=== PATIENT | female | born 1945 | race Caucasian/White ===

== ENCOUNTER → 2016-12-04 | Outpatient (CLI) | payer OTHER ==
[~2016-12-04] MED LIST: ALPR-411 PO; CHOL2000 PO; CINNAMON PO; CRG40 PO; CTP/1 PO; CTP1 PO; EZET10TA41 PO; FISHOIL PO; FLAX SEED OIL PO; FLUO40CA8 PO; GLC/500 PO; IBUP-103 PO; KRIL1CAP24 PO; LEVO88TA3 PO; LEVOXYL PO; LISI20TA3 PO; MEDLIST; MULT-506 PO; NADO40TA PO; POTASSIUM PO; PRZCUNK; SUMA4KIT SQ; XANAX PO
[2016-12-04 13:42] LABS: ESTIMATED AVERAGE GLUCOSE 160 mg/dl; HA1C FLAG Normal (Normal)
== END | disposition home or self-care (01) ==
LOC: C.LABPVFM 10:44
PROVIDERS: ATTEND Family Medicine
DX: E11.9 Type 2 diabetes mellitus without complications (principal); E55.9 Vitamin D deficiency, unspecified

== ENCOUNTER → 2016-12-07 | Outpatient (CLI) | payer OTHER | END | disposition home or self-care (01) | LOC: C.LABPVFM 08:06 | PROVIDERS: ATTEND Family Medicine | DX: R39.9 Unspecified symptoms and signs involving the genitourinary system (principal) ==

== ENCOUNTER 2017-03-18 13:27 | Emergency (ER) | payer OTHER ==
[~2017-03-18] VITALS: Ht 167.6 cm; Wt 71.3 kg
[~2017-03-18 13:27] MED LIST changes: -ALPR-411 PO; -CHOL2000 PO; -CTP/1 PO; -FLUO40CA8 PO; -GLC/500 PO; -IBUP-103 PO; -KRIL1CAP24 PO; -LEVO88TA3 PO; -LISI20TA3 PO; -NADO40TA PO; -SUMA4KIT SQ
[2017-03-18 13:31] VITALS: TEMP 36.6; Ht 167.6 cm; Wt 71.3 kg
[2017-03-18] MEDS ORDERED: LISI20TA3 PO (13:53)
[2017-03-18] MEDS ORDERED: IBUP-103 PO (13:53)
[2017-03-18] MEDS ORDERED: SUMA4KIT SQ (13:53)
[2017-03-18] MEDS ORDERED: NADO40TA PO (13:53)
[2017-03-18] MEDS ORDERED: GLC/500 PO ×2 (13:53)
[2017-03-18] MEDS ORDERED: CTP/1 PO (13:53)
[2017-03-18] MEDS ORDERED: KRIL1CAP24 PO (13:53)
[2017-03-18] MEDS ORDERED: CHOL2000 PO (13:53)
[2017-03-18] MEDS ORDERED: LEVO88TA3 PO (13:53)
[2017-03-18] MEDS ORDERED: ALPR-411 PO (13:53)
[2017-03-18] MEDS ORDERED: FLUO40CA8 PO (13:53)
--- NOTE | 2017-03-18 13:58 | DIAGNOSTIC IMAGING REPORT ---
CHEST 2 VIEWS ROUTINE HISTORY: swallowed 2 plastic paper clips COMPARISON: None. FINDINGS: The lungs are clear. Cardiac silhouette is normal in size. No pleural effusions. No pneumothorax. IMPRESSION: No acute process. No radiopaque foreign bodies. Electronically signed by: Maxime Sahni M.D. 03/18/2017 1:57 PM Dictated Date/Time: 03/18/2017 1:55 PM
--- NOTE | 2017-03-18 14:41 | EMERGENCY ROOM VISIT NOTE ---
ED Visit Note First contact with patient: 13:34 Patient was seen by our PA/MINE PATROL. I was involved in the patient's care and did evaluate the patient myself. I was involved in the care throughout the ER stay. The patient swallowed 2 small plastic paper clips. Chest film is unremarkable. She is in no pain. These foreign body should pass spontaneously through the GI tract, she will watch her stool for the foreign bodies. If she has abdominal pain or vomiting, she will return for reassessment.
[2017-03-18 14:54] VITALS: BP 113/64; PULSE 56; O2SAT 98
--- NOTE | 2017-03-18 17:55 | EMERGENCY ROOM VISIT NOTE ---
History First contact with patient: 13:34 Chief Complaint: OTHER COMPLAINT Stated Complaint: SWALLOWED 2 PAPER CLIPS History of Present Illness The patient is a 72 year old white female who presents to the Emergency Room with complaints of swelling to plastic paperclips approximately an hour ago. She states she usually uses them to keep track of her pills throughout the day. She had them in her mouth while attempting to address her pill count. She forgot that they were paperclips and believed she had her pills in her mouth. She swallowed some 7-Up and accidentally swallowed both of the paper clips. They are approximately 1 cm x 2 cm brightly colored plastic. She denies any sore throat issues. No shortness of breath. No difficulty breathing. She has had no difficulty swallowing. She did drive herself throw up putting a spoon in her mouth. She was unable to vomit them out. She has no acute distress at this point. She denies any abdominal discomfort. Review of Systems REVIEW OF SYSTEM: HEENT: No dizziness, visual problems, hearing loss, or tinnitus. There is no difficulty swallowing and no oral lesions are present. LYMPH: No adenopathy. PULMONARY: No cough, shortness of breath, sputum production or hemoptysis. CARDIOVASCULAR: No chest pain, palpitations, shortness of breath or peripheral edema. GASTROINTESTINAL: No diarrhea, constipation, nausea, vomiting, or abdominal pain. GENITOURINARY: No dysuria, frequency, urgency or nocturia. NEUROLOGIC: No weakness, muscle tenderness, epilepsy or history of neurological problems. MUSCULOSKELETAL: No history of joint tenderness/swelling. Positive history of arthritis and arthralgias. SKIN: No rashes or lesions. PSYCHIATRIC: No history of depression or mental illness. ENDOCRINE: No history of thyroid disorders, or abnormal hair growth. Past Medical/Surgical History Significant for diabetes, hypertension, migraines, and urinary tract issues Previous surgeries: Significant for hysterectomy Family History Significant for heart disease, hypertension, cancer, and kidney stones. Father is . Social History Smoking Status: Never Smoker Alcohol Use: none Drug Use: none Marital Status: Housing Status: lives with family, lives with significant other Occupation Status: retired Current/Historical Medications Scheduled Cholecalciferol (Vitamin D3), 2,000 UNITS PO DAILY Clonidine Hcl (Catapres), 0.1 MG PO BID Fluoxetine (Prozac), 40 MG PO QAM Ibuprofen Tab (Advil), 200-600 MG PO Q4H Krill Oil (Krill Oil 500 mg), 500 MG PO DAILY Levothyroxine Sodium (Levothyroxine Sodium), 88 MCG PO QAM Lisinopril (Prinivil), 10 MG PO DAILY Metformin Hcl (Glucophage), 1,000 MG PO QAM Metformin Hcl (Glucophage), 500 MG PO QPM Nadolol (Corgard), 40 MG PO BID Scheduled PRN Alprazolam (Xanax), 1 MG PO BID PRN for Anxiety Sumatriptan Succinate (Imitrex Statdose Refill), 4 MG SQ UD PRN for Migraine Allergies Coded Allergies: No Known Allergies (Verified , 09/01/10) Physical Exam Vital Signs Date Time Temp Pulse Resp B/P Pulse Ox O2 Delivery O2 Flow Rate FiO2 03/18/17 14:54 56 18 113/64 98 03/18/17 13:31 36.6 63 18 109/62 98 Room Air Pain Rating (0-10): 0 Physical Exam Gen.: Well-developed, well-nourished, elderly white female, in no acute distress. Sitting on a bed. Alert and oriented. Skin:Warm and dry with good turgor. No rashes or lesions. No ecchymosis or erythema. The patient is not diaphoretic. No abrasions. HEENT: Normocephalic atraumatic. Eyes PERRLA, EOMI. No conjunctiva or scleral injection. Nares patent bilaterally without turbinate enlargement. No significant drainage. No epistaxis. Oropharynx without erythema or exudate. Uvula midline, oral mucosa moist. No lesions present. No foreign material is visible. Heart: Heart RRR. No MGR. Peripheral pulses are 2+. Lungs: Lungs are clear to auscultation. No crackles rhonchi or wheezing. Good air movement. The patient is able to take a deep breath. Abdomen: Abdomen was inspected, auscultated, and palpated. Bowel sounds present x 4. Soft, nontender to palpation. No hepato-splenomegaly. Musculoskeletal: Gross motor function of the upper and lower extremities is intact and unremarkable. Medical Decision & Procedures ER Provider Diagnostic Interpretation: Chest x-ray obtained today was read by radiology as negative for visible foreign body. Normal lung pope. ED Course Patient and her were educated regarding today's findings. Conservative care measures were discussed. She is in no acute distress. She will likely pass these in her stool. They are small, and have rounded edges. If she develops severe abdominal pain, nausea, or fevers, return to the ED for immediate evaluation. Follow-up with her PCP as needed otherwise. Patient was seen in conjunction with Dr. Elkins, who also evaluated the patient and concurred with today's diagnosis and treatment plan. Medical Decision Possibility of aspiration versus swallowing the clips was considered. Possibility of small bowel obstruction or airway obstruction were also considered. Impression Primary Impression: Swallowed foreign body Departure Information Dispostion Home / Self-Care Condition FAIR Forms WORK / SCHOOL INSTRUCTIONS, HOME CARE DOCUMENTATION FORM, IMPORTANT VISIT INFORMATION Patient Instructions [facility] [employer] Additional Instructions Return to the ED for any vomiting or significant abdominal pain. You will likely passed the paper clips in your stool. You may watch them for confirmation. Follow-up with your PCP for any other concerns Problem Qualifiers Primary Impression: Swallowed foreign body Encounter type: initial encounter Qualified Codes: T18.9XXA - Foreign body of alimentary tract, part unspecified, initial encounter
== END 2017-03-18 14:56 | disposition home or self-care (01) ==
LOC: C.EDB 13:29 → C.EDD 14:56
DX: T18.9XXA Foreign body of alimentary tract, part unspecified, initial encounter (principal); X58.XXXA Exposure to other specified factors, initial encounter; E11.9 Type 2 diabetes mellitus without complications; I10 Essential (primary) hypertension; G43.909 Migraine, unspecified, not intractable, without status migrainosus; Z82.49 Family history of ischemic heart disease and other diseases of the circulatory system; Z80.9 Family history of malignant neoplasm, unspecified; Z84.1 Family history of disorders of kidney and ureter; Z79.899 Other long term (current) drug therapy

== ENCOUNTER → 2017-05-24 | Outpatient (CLI) | payer OTHER ==
[~2017-05-24] MED LIST changes: +ALPR-411 PO; +CHOL2000 PO; -CINNAMON PO; -CRG40 PO; +CTP/1 PO; -CTP1 PO; -EZET10TA41 PO; -FISHOIL PO; -FLAX SEED OIL PO; +FLUO40CA8 PO; +GLC/500 PO; +IBUP-103 PO; +KRIL1CAP24 PO; +LEVO88TA3 PO; -LEVOXYL PO; +LISI20TA3 PO; -MEDLIST; -MULT-506 PO; +NADO40TA PO; -POTASSIUM PO; -PRZCUNK; +SUMA4KIT SQ; -XANAX PO
[2017-05-24 18:29] LABS: ALT/SGPT 19 U/L (12-78); AST/SGOT 10 U/L (15-37); BLOOD UREA NITROGEN 21 mg/dl (7-18); BUN/CREATININE RATIO 22.7 (10-20); CALCIUM 8.8 mg/dl (8.5-10.1); CARBON DIOXIDE 26 mmol/L (21-32); CHLORIDE 105 mmol/L (98-107); CREATININE 0.92 mg/dl (0.60-1.20); GLUCOSE 169 mg/dl (70-99); POTASSIUM 4.2 mmol/L (3.5-5.1); SODIUM 138 mmol/L (136-145)
[2017-05-24 18:40] LABS: ALB/GLOB RATIO 1.1 (0.9-2); ALKALINE PHOSPHATASE 62 U/L (45-117); CHOLESTEROL 252 mg/dl (0-200); CHOLESTEROL/HDL RATIO 7.9; HDL CHOLESTEROL 32 mg/dl; LDL CHOLESTEROL CALCULATED 150 mg/dl; THYROID STIMULATING HORMONE 0.861 uIu/ml (0.300-4.500); TRIGLYCERIDES 350 mg/dl (0-150); VERY LOW DENSITY LIPOPROT CALC 70 mg/dl
[2017-05-25 08:16] LABS: ESTIMATED AVERAGE GLUCOSE 163 mg/dl; HA1C FLAG Normal (Normal)
== END | disposition home or self-care (01) ==
LOC: C.LABPVFM 11:33
PROVIDERS: ATTEND Family Medicine
DX: I10 Essential (primary) hypertension (principal); E78.5 Hyperlipidemia, unspecified; E11.9 Type 2 diabetes mellitus without complications; E03.9 Hypothyroidism, unspecified

== ENCOUNTER → 2017-11-16 | Outpatient (CLI) | payer OTHER ==
[2017-11-16 13:22] LABS: HEMOGLOBIN A1C 6.7 % (4.5-5.6)
[2017-11-16 16:04] LABS: ALBUMIN 3.6 gm/dl (3.4-5.0); ALKALINE PHOSPHATASE 88 U/L (45-117); ALT/SGPT 16 U/L (12-78); AST/SGOT 11 U/L (15-37); BLOOD UREA NITROGEN 15 mg/dl (7-18); CALCIUM 9.4 mg/dl (8.5-10.1); CARBON DIOXIDE 29 mmol/L (21-32); CREATININE 0.85 mg/dl (0.60-1.20); GLUCOSE 163 mg/dl (70-99); POTASSIUM 4.8 mmol/L (3.5-5.1); SODIUM 133 mmol/L (136-145)
[2017-11-16 16:12] LABS: CHOLESTEROL 197 mg/dl (0-200); LDL CHOLESTEROL CALCULATED 129 mg/dl; TOTAL PROTEIN 7.7 gm/dl (6.4-8.2)
== END | disposition home or self-care (01) ==
LOC: C.LABPVFM 10:45
PROVIDERS: ATTEND Family Medicine
DX: I10 Essential (primary) hypertension (principal); E03.9 Hypothyroidism, unspecified; E78.5 Hyperlipidemia, unspecified; E11.9 Type 2 diabetes mellitus without complications

== ENCOUNTER → 2018-01-31 | Outpatient (CLI) | payer OTHER ==
--- NOTE | 2018-01-31 16:21 | DIAGNOSTIC IMAGING REPORT ---
CHEST 2 VIEWS ROUTINE CLINICAL HISTORY: 73 years-old Female presenting with COUGH. TECHNIQUE: PA and lateral views of the chest were obtained. COMPARISON: 03/18/2017. FINDINGS: Atherosclerosis of the aortic arch. Cardiac silhouette normal in size. Lungs and pleural spaces clear. Osseous structures normal. Upper abdomen normal. IMPRESSION: 1. No acute cardiopulmonary disease. Electronically signed by: Praful Sears M.D. 01/31/2018 4:19 PM Dictated Date/Time: 01/31/2018 4:19 PM
== END | disposition home or self-care (01) ==
LOC: C.RADPV 15:39
PROVIDERS: ATTEND Family Medicine
DX: R05 Cough (principal)

== ENCOUNTER 2024-04-01 18:25 | Inpatient (IN) ==
--- NOTE | 2024-04-01 18:51 | Emergency Department Note ---
Impression & Plan Cough, Vomiting, Fatigue, Hypomagnesemia, Hypokalemia, Hyponatremia ED Provider Note ED Provider Note NAME: ISSA CASTELLANO AGE:79 SEX: Female : 1945 ARRIVES VIA: EMS INFORMANT: Patient ED PROVIDER(s): Lynda Wharton DO CHIEF COMPLAINT: Persistent cough HPI: This is an 79-year-old female who presents emergency room due to concern for persistent cough, weakness and fatigue. Patient states she has been dealing with a cough for a long time, worse in the last several weeks. She states no prior history of tobacco abuse, no history of asthma or COPD. Patient states she was placed on medication for a presumed infection but cannot recall what that was. She states her is coming and will know more information. She states she frequently will cough to the point of vomiting. She states the coughing keeps her up all night. She states she was given Delsym for her cough initially but that has not helped. She states she was then placed on additional medication for cough but does not feel that is helping either. She denies chest pain, abdominal pain, leg swelling, or history of heart problems. She denies any recent fevers, chills, or other URI symptoms. Patient states her cough is frequently productive of a thick green sputum. PAST MEDICAL HISTORY:See Below PAST SURGICAL HISTORY:See Below FAMILY HISTORY:See Below SOCIAL HISTORY:See Below HOME MEDICATIONS:See Below ALLERGIES:See Below VITALS:See Below PHYSICAL EXAMINATION: GENERAL: alert, unwell appearing, well nourished, no distress, non-toxic, persistent cough noted throughout exam EYE EXAM: normal conjunctiva, PERRL and EOM's grossly intact OROPHARYNX: no exudate, no erythema, lips, buccal mucosa, and tongue normal and mucous membranes are dry NECK: supple, no nuchal rigidity, no adenopathy, non-tender LUNGS: Clear to auscultation. Normal chest wall mechanics, no w/r/r HEART: no murmurs, S1 normal and S2 normal ABDOMEN: abdomen soft, non-tender, normo-active bowel sounds, no masses, no rebound or guarding. BACK: Back is symmetrical on inspection and there is no deformity, no midline tenderness, no CVA tenderness. SKIN: no rashes, petechiae, orbruising UPPER EXTREMITIES: upper extremities are grossly normal. FROM, nml pulses b/l. LOWER EXTREMITIES: No pitting edema. FROM, nml pulses b/l. NEURO EXAM: Normal sensorium, cranial nerves II-XII grossly intact, normal speech, no facial droop,nogross weakness of arms, no gross weakness of legs. Gross sensation intact. No ataxia. Vital Signs: reviewed and remarkable Differential Diagnosis: pneumonia, bronchitis, COPD/Asthma exacerbation, pneumothorax, pulmonary embolism, congestive heart failure, acute coronary syndrome, as well as others were considered MEDICAL DECISION MAKING: This is an 79-year-old female presents emerged from due to concern for worsening cough despite outpatient evaluation by pulmonology with recent bronchoscopy and recent initiation of antibiotics in addition to other nebulizer treatments and cough suppressants. On review of EMR patient noted to have a prior history of bronchiectasis. Patient was afebrile vital signs stable, she did have persistent cough noted throughout the exam. Patient states this has been interfering with sleep, as well as eating and staying hydrated. She feels very weak and fatigued. Labs drawn and sent, IV established, EKG and chest x-ray performed bedside interpreted by me and patient monitored on telemetry. Patient given a DuoNeb treatment, and started on IV fluid repletion due to clinical dehydration. Patient found to have significant lab abnormalities including hypomagnesemia at 1.2, likely secondary to decreased intake and most likely contributing to the prolonged QT noted on her EKG. Patient given oral potassium repletion, IV magnesium repletion, continued on IV fluids. She was also noted to be hyponatremic. Patient given a dose of IV Zosyn additionally due to concern for recent procedure. Patient had been started on Augmentin as an outpatient due to culture results recently although other cultures from her bronchoscopy are still pending. Due to concern for her worsening symptoms and electrolyte abnormalities/dehydration, case discussed with the hospitalist team for additional evaluation and management. Consultation(s): 1999: Discussed with Dr. Tiwari, [facility] hospitalist team, for additional evaluation and management. ER Treatment Provided: See below 1940: Updated now at bedside. He states she has had lung issues dating back at least 6 to 7 years when she used to follow with Dr. Quintanilla of pulmonology. He confirms she just started Augmentin yesterday after being called by Dr. Carpenter's office regarding findings from the recent bronchoscopy. Diagnostics Interpreted By Me: -ECG: Sinus bradycardia at 59, normal axis, normal QRS, prolonged QT C, nonspecific ST/T wave changes -Cardiac Monitoring: An order was placed for continuous cardiac monitoring. The monitor shows a rate of 70 with normal sinus rhythm. -Laboratory studies: As stated above and show below. -Imaging studies: Chest x-ray: No cardiomegaly, no wide mediastinum, no pleural effusions, likely right-sided pneumonia however increased interstitial markings noted on the left as well Triage Nursing Note Reviewed Prior/Outside Records Reviewed - recent outpatient bronchoscopy and pulmonology visits reviewed Critical Care: Critical care of 39 min performed to assess and manage high likelihood of life- threatening dyspnea and prolonged QTc, involving labs and imaging performed with assessment to evaluate dyspnea and weakness diagnosis with frequent reassessment. This time includes bedside time, treatment discussions with patient/family/consultants, documentation time and excludes procedure time. Past Med/Surg History Problem List (Updated 04/03/24 @ 11:11 by Lynda Wharton DO) Hypokalemia (Acute) Hypomagnesemia (Acute) Electrolyte abnormality Fatigue (Acute) Fatigue Decreased appetite Chronic cough Abnormal CT scan, chest Bronchiectasis Acute bronchitis Abnormal CXR Right hilar and right upper lobe densities are stable to slightly progressed compared to the prior study as described above. Therefore, follow-up chest CT recommended for further evaluation. 08/2023 Vomiting (Acute) Cough (Acute) Encounter for immunization Encounter for pre-operative examination Urinary symptom or sign Routine health maintenance (Chronic) Hyponatremia (Acute) Anxiety and depression (Chronic) Dyslipidemia (Chronic) Hypothyroidism (acquired) (Chronic) Diabetes mellitus (Chronic) Hypertension (Chronic) Migraine (Chronic) Medical History Spinal stenosis Surgical History H/O bilateral oophorectomy H/O: hysterectomy Family History Mother Breast cancer Aunt Colon cancer Brother Prostate cancer Denies family history of Ovarian cancer Myocardial infarction Colorectal cancer Social History Smoking Status: Never smoker Second Hand Exposure: No; Do You Dip or Chew Tobacco: No; Hx Alcohol Use: No Hx Substance Use: No Preferred Language: German Communication Ability: Effective Visual Impairment: Limited Hearing Ability: Normal Climatology Professor Required: No Beliefs That Will Affect Care: None marital status: Current Living Situation: Spouse current occupational status: retired How many Children do You have: 2 Feels Safe at Home: Yes Safety Concerns: Feels Safe At This Time Childhood Exposure to Second-Hand Smoke: Yes Diet: diabetic and regular caffeine: Yes during the past year weight has: remained stable Dental Care, Regularly: Yes Physical Activity Frequency: Daily Seatbelt Use: always Sunscreen Use: Yes Assistive Devices: Bedside Commode, Cane, Raised Toilet Seat and Walker Allergies Allergies Allergy/AdvReac Type Severity Reaction Status Date / Time No Known Allergies Allergy Mild Verified 04/01/24 19:41 Home Meds Home Medications Medication Instructions Recorded Confirmed multivitamin 1 tab PO QAM 03/12/19 04/01/24 diphenhydramine HCl 25 mg capsule 50 mg PO UD PRN Headache 12/28/19 04/01/24 (Benadryl) magnesium citrate 100 mg tablet 400 mg PO QAM 12/28/19 04/01/24 riboflavin (vitamin B2) 400 mg 400 mg PO QAM 12/28/19 04/01/24 tablet acetaminophen 500 mg oral powder 500 - 1,000 mg PO Q6H PRN Pain 08/30/21 04/01/24 packet (Tylenol Extra Strength) Previous Rx's Medication Instructions Recorded benzonatate 100 mg capsule 100 mg PO TID PRN cough #30 caps 09/13/23 fluoxetine 20 mg capsule 20 mg PO DAILY #90 caps 11/19/23 fluoxetine 40 mg capsule 40 mg PO DAILY #90 caps 11/19/23 losartan 25 mg tablet 25 mg PO QAM #90 tabs 11/19/23 alprazolam 0.5 mg tablet (Xanax) 0.5 mg PO BID #60 tabs 11/30/23 albuterol sulfate 90 mcg/actuation 2 inh inhalation QID PRN shortness 01/10/24 aerosol inhaler of breath or wheezing #8.5 grams nebulizers #1 ea 01/10/24 sodium chloride 7 % for 4 ml inhalation BID #240 mL 01/10/24 nebulization (Hyper-Royal) clonidine HCl 0.1 mg tablet 0.05 mg (1/2 x 0.1 mg) PO BID #90 02/14/24 tabs levothyroxine 75 mcg tablet 75 mcg PO DAILY #90 tabs 02/14/24 metformin 500 mg tablet 1,000 mg (2 x 500 mg) PO BIDM #360 03/17/24 tabs amoxicillin 500 mg-potassium 1 tab PO BID #10 tabs 03/29/24 clavulanate 125 mg tablet (Augmentin) nadolol 40 mg tablet 40 mg PO BID #180 tabs 03/31/24 Results & Data (ED) Vital Signs Vital Signs - 24 hr 04/02/24 16:07 Temperature 36.4 C L Temperature Source Oral Pulse Rate [Finger] 53 L Respiratory Rate 18 Blood Pressure [Right Arm] 108/61 Blood Pressure Mean [Right Arm] 76 Blood Pressure Position [Right Arm] Semi-fowlers Pulse Oximetry 94 Oxygen Delivery Method Room Air Laboratory Data 04/03/24 08:27 04/03/24 08:27 Lab Results 04/01/24 04/01/24 04/01/24 Range/Units 18:56 20:24 20:50 WBC 17.66 H (4.8-10.8) K/ul RBC 3.76 L (4.20-5.40) M/uL Hgb 10.4 L (12.0-16.0) g/dl Hct 31.6 L (37.0-47.0) % MCV 84.0 (80.0-100.0) fL MCH 27.7 (25.0-34.0) pg MCHC 32.9 (32.0-36.0) g/dL RDW Std Deviation 45.6 (36.4-46.3) fL RDW Coeff of Zhanna 14.9 H (11.5-14.5) % Plt Count 599 H (130-400) K/uL MPV 9.2 L (9.4-12.4) fL Immature Gran % (Auto) 0.5 % Neut % (Auto) 82.8 % Lymph % (Auto) 8.0 % Miller % (Auto) 6.9 % Eos % (Auto) 1.5 % Baso % (Auto) 0.3 % Neut # (Auto) 14.62 H (1.40-6.50) K/uL Lymph # (Auto) 1.42 (1.20-3.40) K/uL Miller # (Auto) 1.21 H (0.11-0.59) K/uL Eos # (Auto) 0.27 (0.00-0.50) K/uL Baso # (Auto) 0.06 (0.00-0.20) K/uL Immature Gran # (Auto) 0.08 (0.01-0.20) K/uL Sodium 133 L (136-145) mmol/L Potassium 2.9 L (3.5-5.1) mmol/L Chloride 100 (98-107) mmol/L Carbon Dioxide 19 L (21-32) mmol/L Anion Gap 14 H (3-11) BUN 30 H (6-23) mg/dl Creatinine 1.04 (0.6-1.2) mg/dl Est Cr Clr Drug Dosing 35.8 ml/min Est GFR ( Amer) 58.8 ml/min Est GFR (Non-Af Amer) 50.7 ml/min BUN/Creatinine Ratio 28.8 H (10-20) Glucose 145 H (70-99(Fasting)) mg/dl POC Glucose (70-99) mg/dl Calcium 9.5 (8.6-10.3) mg/dl Phosphorus 3.4 (2.5-4.9) mg/dl Magnesium 1.2 L (1.7-2.4) mg/dl Total Bilirubin 0.3 (0.2-1.0) mg/dl AST 13 (13-39) U/L ALT 8 (7-52) U/L Alkaline Phosphatase 104 (34-104) U/L Troponin I High Sens 8.7 (0-14) pg/ml B-Natriuretic Peptide 336 H (0-100) pg/ml Total Protein 6.6 (6.0-8.3) gm/dl Albumin 3.3 L (3.4-5.0) gm/dl Globulin 3.3 (2.5-4.0) gm/dl Albumin/Globulin Ratio 1.0 (0.9-2) Procalcitonin 28.00 H (0-0.5) ng/ml TSH 4.328 (0.300-4.500) uIu/ml Nasal Screen MRSA (PCR) (Negative) Adenovirus (PCR) Not Detected (NotDetected) B. pertussis DNA (PCR) Not Detected (NotDetected) B.parapertussis DNA PCR Not Detected (NotDetected) C. pneumoniae DNA (PCR) Not Detected (NotDetected) Coronavirus OC43 (PCR) Not Detected (NotDetected) Coronavirus HKU1 (PCR) Not Detected (NotDetected) Coronavirus 229E (PCR) Not Detected (NotDetected) SARS-CoV-2 (PCR) Not Detected (NotDetected) Coronavirus NL63 (PCR) Not Detected (NotDetected) Human Metapneumovir PCR Not Detected (NotDetected) Influenza Type A (PCR) Not Detected (NotDetected) Influenza Type B (PCR) Not Detected (NotDetected) M. pneumoniae (PCR) Not Detected (NotDetected) Parainfluenza 1 (PCR) Not Detected (NotDetected) Parainfluenza 2 (PCR) Not Detected (NotDetected) Parainfluenza 3 (PCR) Not Detected (NotDetected) Parainfluenza 4 (PCR) Not Detected (NotDetected) RSV (PCR) Not Detected (NotDetected) Entero/Rhino (PCR) Not Detected (NotDetected) 04/01/24 04/01/24 04/02/24 Range/Units 22:54 22:55 06:23 WBC 22.33 H (4.8-10.8) K/ul RBC 3.59 L (4.20-5.40) M/uL Hgb 9.9 L (12.0-16.0) g/dl Hct 29.7 L (37.0-47.0) % MCV 82.7 (80.0-100.0) fL MCH 27.6 (25.0-34.0) pg MCHC 33.3 (32.0-36.0) g/dL RDW Std Deviation 45.4 (36.4-46.3) fL RDW Coeff of Zhanna 14.9 H (11.5-14.5) % Plt Count 717 H (130-400) K/uL MPV 9.4 (9.4-12.4) fL Immature Gran % (Auto) % Neut % (Auto) % Lymph % (Auto) % Miller % (Auto) % Eos % (Auto) % Baso % (Auto) % Neut # (Auto) (1.40-6.50) K/uL Lymph # (Auto) (1.20-3.40) K/uL Miller # (Auto) (0.11-0.59) K/uL Eos # (Auto) (0.00-0.50) K/uL Baso # (Auto) (0.00-0.20) K/uL Immature Gran # (Auto) (0.01-0.20) K/uL Sodium 132 L (136-145) mmol/L Potassium 4.3 D (3.5-5.1) mmol/L Chloride 101 (98-107) mmol/L Carbon Dioxide 20 L (21-32) mmol/L Anion Gap 11 (3-11) BUN 30 H (6-23) mg/dl Creatinine 0.82 (0.6-1.2) mg/dl Est Cr Clr Drug Dosing 44.5 ml/min Est GFR ( Amer) 78.3 ml/min Est GFR (Non-Af Amer) 67.6 ml/min BUN/Creatinine Ratio 36.6 H (10-20) Glucose 234 H (70-99(Fasting)) mg/dl POC Glucose 190 H (70-99) mg/dl Calcium 8.5 L (8.6-10.3) mg/dl Phosphorus (2.5-4.9) mg/dl Magnesium 1.9 (1.7-2.4) mg/dl Total Bilirubin (0.2-1.0) mg/dl AST (13-39) U/L ALT (7-52) U/L Alkaline Phosphatase (34-104) U/L Troponin I High Sens (0-14) pg/ml B-Natriuretic Peptide (0-100) pg/ml Total Protein (6.0-8.3) gm/dl Albumin (3.4-5.0) gm/dl Globulin (2.5-4.0) gm/dl Albumin/Globulin Ratio (0.9-2) Procalcitonin (0-0.5) ng/ml TSH (0.300-4.500) uIu/ml Nasal Screen MRSA (PCR) Negative (Negative) Adenovirus (PCR) (NotDetected) B. pertussis DNA (PCR) (NotDetected) B.parapertussis DNA PCR (NotDetected) C. pneumoniae DNA (PCR) (NotDetected) Coronavirus OC43 (PCR) (NotDetected) Coronavirus HKU1 (PCR) (NotDetected) Coronavirus 229E (PCR) (NotDetected) SARS-CoV-2 (PCR) (NotDetected) Coronavirus NL63 (PCR) (NotDetected) Human Metapneumovir PCR (NotDetected) Influenza Type A (PCR) (NotDetected) Influenza Type B (PCR) (NotDetected) M. pneumoniae (PCR) (NotDetected) Parainfluenza 1 (PCR) (NotDetected) Parainfluenza 2 (PCR) (NotDetected) Parainfluenza 3 (PCR) (NotDetected) Parainfluenza 4 (PCR) (NotDetected) RSV (PCR) (NotDetected) Entero/Rhino (PCR) (NotDetected) 04/02/24 04/02/24 04/02/24 Range/Units 08:12 11:45 16:50 WBC (4.8-10.8) K/ul RBC (4.20-5.40) M/uL Hgb (12.0-16.0) g/dl Hct (37.0-47.0) % MCV (80.0-100.0) fL MCH (25.0-34.0) pg MCHC (32.0-36.0) g/dL RDW Std Deviation (36.4-46.3) fL RDW Coeff of Zhanna (11.5-14.5) % Plt Count (130-400) K/uL MPV (9.4-12.4) fL Immature Gran % (Auto) % Neut % (Auto) % Lymph % (Auto) % Miller % (Auto) % Eos % (Auto) % Baso % (Auto) % Neut # (Auto) (1.40-6.50) K/uL Lymph # (Auto) (1.20-3.40) K/uL Miller # (Auto) (0.11-0.59) K/uL Eos # (Auto) (0.00-0.50) K/uL Baso # (Auto) (0.00-0.20) K/uL Immature Gran # (Auto) (0.01-0.20) K/uL Sodium (136-145) mmol/L Potassium (3.5-5.1) mmol/L Chloride (98-107) mmol/L Carbon Dioxide (21-32) mmol/L Anion Gap (3-11) BUN (6-23) mg/dl Creatinine (0.6-1.2) mg/dl Est Cr Clr Drug Dosing ml/min Est GFR ( Amer) ml/min Est GFR (Non-Af Amer) ml/min BUN/Creatinine Ratio (10-20) Glucose (70-99(Fasting)) mg/dl POC Glucose 249 H 261 H 220 H (70-99) mg/dl Calcium (8.6-10.3) mg/dl Phosphorus (2.5-4.9) mg/dl Magnesium (1.7-2.4) mg/dl Total Bilirubin (0.2-1.0) mg/dl AST (13-39) U/L ALT (7-52) U/L Alkaline Phosphatase (34-104) U/L Troponin I High Sens (0-14) pg/ml B-Natriuretic Peptide (0-100) pg/ml Total Protein (6.0-8.3) gm/dl Albumin (3.4-5.0) gm/dl Globulin (2.5-4.0) gm/dl Albumin/Globulin Ratio (0.9-2) Procalcitonin (0-0.5) ng/ml TSH (0.300-4.500) uIu/ml Nasal Screen MRSA (PCR) (Negative) Adenovirus (PCR) (NotDetected) B. pertussis DNA (PCR) (NotDetected) B.parapertussis DNA PCR (NotDetected) C. pneumoniae DNA (PCR) (NotDetected) Coronavirus OC43 (PCR) (NotDetected) Coronavirus HKU1 (PCR) (NotDetected) Coronavirus 229E (PCR) (NotDetected) SARS-CoV-2 (PCR) (NotDetected) Coronavirus NL63 (PCR) (NotDetected) Human Metapneumovir PCR (NotDetected) Influenza Type A (PCR) (NotDetected) Influenza Type B (PCR) (NotDetected) M. pneumoniae (PCR) (NotDetected) Parainfluenza 1 (PCR) (NotDetected) Parainfluenza 2 (PCR) (NotDetected) Parainfluenza 3 (PCR) (NotDetected) Parainfluenza 4 (PCR) (NotDetected) RSV (PCR) (NotDetected) Entero/Rhino (PCR) (NotDetected) Administered Medications Acetaminophen (Acetaminophen 325 Mg Tab) 650 mg PO Q4H PRN PRN Reason: Pain or Fever Stop: 05/01/24 22:45 Last Admin: 04/03/24 01:42 Dose: 650 mg Documented By: Admin: 04/02/24 12:41 Dose: 650 mg Documented By: PATI Albuterol (Albuterol 0.5% Neb Soln 2.5 Mg/0.5 Ml Vial) 2.5 mg NEB Q2H PRN; Protocol PRN Reason: SOB/Wheeze Stop: 05/01/24 22:45 Last Admin: 04/01/24 23:34 Dose: 2.5 mg Documented By: OLGA LIDIA Alprazolam (Alprazolam 0.5 Mg Tablet) 0.5 mg PO BID [facility] Stop: 05/01/24 22:45 Last Admin: 04/03/24 07:53 Dose: 0.5 mg Documented By: Admin: 04/02/24 20:22 Dose: 0.5 mg Documented By: Admin: 04/02/24 08:38 Dose: 0.5 mg Documented By: Admin: 04/02/24 00:19 Dose: 0.5 mg Documented By: JOI Benzonatate (Benzonatate 100 Mg Capsule) 100 mg PO TID [facility] Stop: 05/01/24 22:45 Last Admin: 04/03/24 07:54 Dose: 100 mg Documented By: Admin: 04/02/24 20:22 Dose: 100 mg Documented By: Admin: 04/02/24 13:27 Dose: 100 mg Documented By: Admin: 04/02/24 08:29 Dose: 100 mg Documented By: Admin: 04/01/24 23:46 Dose: 100 mg Documented By: JOI Clonidine HCl (Clonidine Hcl 0.1 Mg Tab) 0.05 mg PO BID MOISE Stop: 05/01/24 22:45 Last Admin: 04/03/24 07:54 Dose: 0.05 mg Documented By: Admin: 04/02/24 20:22 Dose: 0.05 mg Documented By: Admin: 04/02/24 08:30 Dose: 0.05 mg Documented By: Admin: 04/01/24 23:49 Dose: 0.05 mg Documented By: JOI Enoxaparin Sodium (Enoxaparin Inj 30 Mg/0.3 Ml Syr) 30 mg SQ QAM MOISE Stop: 05/02/24 08:59 Last Admin: 04/03/24 08:01 Dose: 30 mg Documented By: Admin: 04/02/24 08:31 Dose: Not Given Documented By: PATI Fluoxetine HCl (Fluoxetine Hcl 20 Mg Cap) 60 mg PO DAILY MOISE Stop: 05/02/24 08:59 Last Admin: 04/03/24 07:54 Dose: 60 mg Documented By: Admin: 04/02/24 08:29 Dose: 60 mg Documented By: PATI Fluticasone/Vilanterol (Fluticasone/Vilanterol 200/25mcg 14 Puffs/Inhaler) 1 puffs INH DAILY MOISE Stop: 05/03/24 08:59 Last Admin: 04/03/24 07:53 Dose: 1 puffs Documented By: NISHANT Guaifenesin (Guaifenesin 600 Mg Tabcr) 1,200 mg PO Q12 MOISE Stop: 05/01/24 22:45 Last Admin: 04/03/24 07:55 Dose: 1,200 mg Documented By: Admin: 04/02/24 20:22 Dose: 1,200 mg Documented By: Admin: 04/02/24 08:29 Dose: 1,200 mg Documented By: Admin: 04/01/24 23:48 Dose: 1,200 mg Documented By: JOI Hydrocodone Bit/Homatropine Methylb (Hydrocodone/Homatropine Syrup 5mg/1.5mg 5ml Udp) 5 ml PO Q6H PRN PRN Reason: Cough Stop: 04/15/24 22:45 Last Admin: 04/02/24 12:41 Dose: 5 ml Documented By: PATI Piperacillin Sod/Tazobactam (Sod 4.5 gm/ Dextrose) 100 mls @ 25 mls/hr IV Q8H [facility]; Protocol Stop: 04/09/24 01:59 Last Admin: 04/03/24 09:24 Dose: 25 mls/hr Documented By: Infusion: 04/03/24 06:06 Dose: Infused Documented By: Admin: 04/03/24 01:43 Dose: 25 mls/hr Documented By: Infusion: 04/02/24 22:03 Dose: Infused Documented By: Admin: 04/02/24 18:01 Dose: 25 mls/hr Documented By: Infusion: 04/02/24 15:16 Dose: Infused Documented By: Admin: 04/02/24 11:06 Dose: 25 mls/hr Documented By: Infusion: 04/02/24 06:15 Dose: Infused Documented By: Admin: 04/02/24 02:08 Dose: 25 mls/hr Documented By: JOI Insulin Aspart (Insulin Aspart Per Unit Charge) 0 units SC ACHS [facility] Stop: 05/02/24 20:59 Last Admin: 04/03/24 09:23 Dose: 2 units Documented By: NISHANT Co-signed By: SUGAR Admin: 04/02/24 20:21 Dose: 4 units Documented By: DEVIN Co-signed By: STACY Insulin Glargine (Lantus Per Unit Charge) 9 units SQ BID [facility] Stop: 05/02/24 20:59 Last Admin: 04/03/24 09:23 Dose: 9 units Documented By: NISHANT Co-signed By: SUGAR Admin: 04/02/24 20:21 Dose: 9 units Documented By: DEVIN Co-signed By: STACY Levothyroxine Sodium (Levothyroxine Sodium 75 Mcg Tablet) 75 mcg PO DAILYBB [facility] Stop: 05/02/24 06:29 Last Admin: 04/03/24 06:22 Dose: 75 mcg Documented By: Admin: 04/02/24 05:55 Dose: 75 mcg Documented By: JOI Losartan Potassium (Losartan Potassium 25 Mg Tab) 25 mg PO QAM [facility] Stop: 05/02/24 08:59 Last Admin: 04/03/24 07:55 Dose: 25 mg Documented By: Admin: 04/02/24 08:29 Dose: 25 mg Documented By: PATI Nadolol (Nadolol 40 Mg Tab) 40 mg PO BID [facility] Stop: 05/01/24 22:45 Last Admin: 04/03/24 07:55 Dose: 40 mg Documented By: Admin: 04/02/24 20:22 Dose: 40 mg Documented By: Admin: 04/02/24 08:29 Dose: 40 mg Documented By: Admin: 04/01/24 23:47 Dose: 40 mg Documented By: JOI Oxycodone HCl (Oxycodone Hcl Ir 5 Mg Tab (Immediate Release)) 5 mg PO Q4H PRN PRN Reason: Headache or Pain Stop: 04/16/24 15:30 Last Admin: 04/03/24 01:35 Dose: 5 mg Documented By: FELISHA Sodium Chloride (Sodium Chlor 7% 4 Ml Neb) 4 ml INH BIDR [facility] Stop: 05/01/24 22:45 Last Admin: 04/03/24 07:38 Dose: 4 ml Documented By: Admin: 04/02/24 20:05 Dose: 4 ml Documented By: Admin: 04/02/24 07:46 Dose: 4 ml Documented By: Admin: 04/01/24 23:34 Dose: 4 ml Documented By: OLGA LIDIA Umeclidinium [place] (Umeclidinium [place] 62.5mcg/Blister 7 Puffs/Inhaler) 1 puffs INH DAILY [facility] Stop: 05/02/24 10:29 Last Admin: 04/03/24 07:55 Dose: 1 puffs Documented By: Admin: 04/02/24 12:06 Dose: 1 puffs Documented By: PATI Discontinued Medications Albuterol (Albut/Ipratrop 3mg/0.5mg Neb 3 Ml Vial) 3 ml NEB NOW STA; Protocol Stop: 04/01/24 18:47 Last Admin: 04/01/24 19:20 Dose: 3 ml Documented By: ASIM Benzonatate (Benzonatate 100 Mg Capsule) 100 mg PO NOW ONE Stop: 04/01/24 19:36 Last Admin: 04/01/24 19:55 Dose: 100 mg Documented By: ASIM Dexamethasone Sodium Phosphate (DexamethasonePf 10 Mg/Ml Vial) 10 mg IV NOW ONE Stop: 04/01/24 19:42 Last Admin: 04/01/24 19:56 Dose: 10 mg Documented By: [facility] Sodium Chloride (Nss) 1,000 mls @ 125 mls/hr IV .Q8H MOISE Stop: 05/01/24 19:44 Last Infusion: 04/02/24 00:16 Dose: Infused Documented By: Admin: 04/01/24 19:56 Dose: 125 mls/hr Documented By: [facility] Magnesium Sulfate/Dextrose (Magnesium Sulfate / D5w) 1 gm in 100 mls @ 100 mls/hr IV Q1H MOISE Stop: 04/01/24 21:40 Last Infusion: 04/02/24 03:04 Dose: Infused Documented By: Admin: 04/02/24 02:03 Dose: 100 mls/hr Documented By: Infusion: 04/02/24 00:07 Dose: Infused Documented By: Infusion: 04/01/24 21:15 Dose: 100 mls/hr Documented By: [facility] Infusion: 04/01/24 20:20 Dose: 0 mls/hr Documented By: [facility] Admin: 04/01/24 19:56 Dose: 100 mls/hr Documented By: [facility] Piperacillin Sod/Tazobactam Sod (Zosyn) 4.5 gm in 100 mls @ 200 mls/hr IV NOW ONE Stop: 04/01/24 20:21 Last Infusion: 04/01/24 21:18 Dose: Infused Documented By: [facility] Admin: 04/01/24 20:20 Dose: 200 mls/hr Documented By: [facility] Acetaminophen (Ofirmev) 1,000 mg in 100 mls @ 400 mls/hr IV NOW STA Stop: 04/01/24 21:05 Last Infusion: 04/01/24 21:51 Dose: Infused Documented By: [facility] Admin: 04/01/24 21:14 Dose: 400 mls/hr Documented By: [facility] Magnesium Sulfate/Dextrose (Magnesium Sulfate / D5w) 1 gm in 100 mls @ 50 mls/hr IV ONE ONE Stop: 04/02/24 00:45 Last Infusion: 04/02/24 02:12 Dose: Infused Documented By: Admin: 04/02/24 00:03 Dose: 50 mls/hr Documented By: JOI Lactated Ringer's (Lr) 1,000 mls @ 80 mls/hr IV .[id number] MOISE Stop: 04/02/24 11:15 Last Infusion: 04/02/24 11:00 Dose: Infused Documented By: Admin: 04/01/24 23:49 Dose: 80 mls/hr Documented By: JOI Magnesium Sulfate/Dextrose (Magnesium Sulfate / D5w) 1 gm in 100 mls @ 50 mls/hr IV Q2H [facility] Stop: 04/02/24 19:29 Last Infusion: 04/02/24 17:51 Dose: Infused Documented By: Admin: 04/02/24 15:53 Dose: 50 mls/hr Documented By: Infusion: 04/02/24 15:53 Dose: Infused Documented By: Admin: 04/02/24 15:52 Dose: 50 mls/hr Documented By: PATI Insulin Aspart (Insulin Aspart Per Unit Charge) 0 units SC ACHS [facility] Stop: 05/02/24 07:29 Last Admin: 04/02/24 18:01 Dose: 5 units Documented By: PATI Co-signed By: EMA Admin: 04/02/24 12:38 Dose: 5 units Documented By: PATI Co-signed By: MELLY Admin: 04/02/24 08:38 Dose: 5 units Documented By: PATI Co-signed By: LUZMARIA Ketorolac Tromethamine (Ketorolac Tromethamine 15 Mg/Ml Vial) 10 mg IV NOW ONE Stop: 04/01/24 20:52 Last Admin: 04/01/24 21:14 Dose: 10 mg Documented By: ASIM Ketorolac Tromethamine (Ketorolac Tromethamine 15 Mg/Ml Vial) 15 mg IV NOW ONE Stop: 04/02/24 15:30 Last Admin: 04/02/24 15:47 Dose: 15 mg Documented By: PATI Oxycodone HCl (Oxycodone Hcl Ir 5 Mg Tab (Immediate Release)) 5 mg PO NOW STA Stop: 04/01/24 22:47 Last Admin: 04/01/24 23:47 Dose: 5 mg Documented By: JOI Potassium Chloride (Potassium Chloride Crtab 20 Meq Tabcr) 40 meq PO NOW STA Stop: 04/01/24 19:41 Last Admin: 04/01/24 19:54 Dose: 40 meq Documented By: ASIM Potassium Chloride (Potassium Chloride Crtab 20 Meq Tabcr) 40 meq PO NOW STA Stop: 04/01/24 22:47 Last Admin: 04/01/24 23:59 Dose: 40 meq Documented By: GND Discharge Plan Visit Data Chief Complaint: Cough Stated Complaint: COUGHING ED Provider: Lynda Wharton Discharge Problem: Cough, Vomiting, Fatigue, Hypomagnesemia, Hypokalemia, Hyponatremia Patient Disposition: Admitted As Inpatient Discharge Instructions Interventions: ED Discharge Assessment Last Done: 04/01/24 22:02
[2024-04-01] MEDS: ALBUT/IPRATROP 3MG/0.5MG NEB 3 ML VIAL NEB STA (19:20)
[2024-04-01 19:21] LABS: Basophils # (auto) 0.06 K/uL (0.00-0.20); Basophils % (auto) 0.3 %; Eosinophils # (auto) 0.27 K/uL (0.00-0.50); Eosinophils % (auto) 1.5 %; Hematocrit (blood only) 31.6 % (37.0-47.0); Hemoglobin 10.4 g/dl (12.0-16.0); Immature Granulocytes # (auto) 0.08 K/uL (0.01-0.20); Immature Granulocytes % (auto) 0.5 %; Lymphocytes # (auto) 1.42 K/uL (1.20-3.40); Mean Corpuscular Hemoglobin 27.7 pg (25.0-34.0); Mean Corpuscular Hgb Conc 32.9 g/dL (32.0-36.0); Mean Platelet Volume 9.2 fL (9.4-12.4); Monocytes # (auto) 1.21 K/uL (0.11-0.59); Monocytes % (auto) 6.9 %; Neutrophils # (auto) 14.62 K/uL (1.40-6.50); Neutrophils % (auto) 82.8 %; Platelet Count 599 K/uL (130-400); RDW Coefficient of Variation 14.9 % (11.5-14.5); RDW Standard Deviation 45.6 fL (36.4-46.3); Red Blood Count 3.76 M/uL (4.20-5.40); White Blood Count 17.66 K/ul (4.8-10.8)
[2024-04-01 19:38] LABS: Albumin Level 3.3 gm/dl (3.4-5.0); BUN Creatinine Ratio 28.8 (10-20); Bilirubin,Total 0.3 mg/dl (0.2-1.0); Calcium 9.5 mg/dl (8.6-10.3); Creatinine Clr Calc Pharmacy 35.8 ml/min; Est GFR (African American) 58.8 ml/min; Est GFR (Non-African American) 50.7 ml/min; Globulin 3.3 gm/dl (2.5-4.0); Magnesium 1.2 mg/dl (1.7-2.4); Potassium 2.9 mmol/L (3.5-5.1); Total Protein 6.6 gm/dl (6.0-8.3)
[2024-04-01 19:44] LABS: Troponin I High Sensitivity 8.7 pg/ml (0-14)
[2024-04-01 19:53] LABS: Thyroid Stimulating Hormone 4.328 uIu/ml (0.300-4.500)
[2024-04-01] MEDS: POTASSIUM CHLORIDE CRTAB 20 MEQ TABCR PO STA ×2 (19:54→23:59)
[2024-04-01] MEDS: BENZONATATE 100 MG CAPSULE PO ONE (19:55)
[2024-04-01] MEDS: dexAMETHasone**PF** 10 MG/ML VIAL IV ONE (19:56)
[2024-04-01] MEDS: MAGNESIUM SULFATE / D5W 1 GM/100 ML BAG IV SCH (19:56)
[2024-04-01] MEDS: SODIUM CHLORIDE 0.9% 1,000 ML IV SCH (19:56)
[2024-04-01] MEDS: PIPERACILLIN/TAZOBACTAM 4.5 GM/100 ML BAG IV ONE (20:20)
[2024-04-01 20:37] LABS: Phosphorus 3.4 mg/dl (2.5-4.9)
--- NOTE | 2024-04-01 21:08 | History & Physical Report ---
Date of Service April 01, 2024 Assessment & Plan (1) Bronchiectasis: Plan: 79yo female presenting with persistent productive cough. Patient with known history of bronchiectasis, etiology uncertain. She is following with Pulmonary presently. Had a bronchoscopy performed 03/27/24 - with washings positive for MSSA. Atypical mycobacterial infection possible, culture is still pending. Legionella DNA from bronchoscopy was NEGATIVE. Presenting with persistent weakness, fatigue as well as ongoing cough which is interfering with sleep, oral intake and taking her medications. Leukocytosis with WBC=17.66, neutrophil predominant, elevated procalcitonin at 28. Patient is afebrile, HD stable and non-toxic in appearance. Respiratory biofire panel is NEGATIVE. -Admit to medical -Zosyn 4.5gm IV q 8 hours -Check MRSA nares -Will hold off on atypical coverage for now - patient recently completed 11 days of Doxycycline and had some GI side effects. QTc rather prolonged - will not give Azithromycin at this time -Albuterol nebs q 2 hours PRN -Hypertonic saline nebs BID -Tessalon 100mg po TID scheduled -Mucinex 1200mg po BID -Hycodan PRN with caution in elderly patient -Flutter valve -Incentive spirometry -Consider Pulmonary consultation - ?need for fungal coverage or additional workup? - rare fungus present in RML bronchial washing. Her eosinophil count is normal. (2) Electrolyte abnormality: Plan: Patient with hypomagnesemia and hypokalemia. PO4 is WNL. Mild hyponatremia with Dp=723 -Mg x 3gm IV ordered -KCl 80mEq PO ordered -Repeat chemistry and Mg level in AM with additional repletion as needed. Plan Hypertension - chronic. Blood pressure mildly elevated at 152/64 on arrival -Continue home medications - Clonidine 0.5mg po BID - next dose 04/01/24 at 21:00 -Continue losartan -Continue nadolol -Monitor Migraine - chronic. Patient with headache currently. Given Tylenol and Toradol , has received Dexamethasone and IV Magnesium as well - still with headache -will give Oxycodone 5mg now -Tylenol PRN -Will avoid use of Reglan due to prolonged QT interval Hypothyroidism - chronic, stable. TSH within normal limits at 4.328 -Continue Synthroid Depression/Anxiety - chronic -Continue Fluoxetine 60mg po daily -Continue Alprazolam 0.5mg po BID Diabetes - chronic. well controlled -Hold metformin -ISS History of Present Illness Chief Complaint: persistent cough Primary Care Provider: Carol Prasad MD Erma Medel is a pleasant 79yo female with history of Bronchiectasis, HTN, HLP and DM presenting with persistent cough. Patient follows with Pulmonary. She has an expectorated sputum from 02/12/24 which was POSITIVE for staphylococcus aureus (MSSA). She was treated with Doxycycline - 11 day course. AFB smear and culture from 02/12/24 is NEGATIVE. She was seen by Pulmonary in clinic on 03/20/24 with complaint of ongoing cough, fatigue, decreased energy, poor sleep and decreased oral intake. She had a bronchoscopy performed on 03/27/24. The culture from that study showed persistent MSSA. Her AFB smear is NEGATIVE and AFB culture is still pending. Patient has been started on a 10 day course of Augmentin (has taken 2 doses thus far). Patient reports ongoing, persistent cough which keeps her awake at night, interferes with her meals and makes it difficult for her to take her medications. Cough is productive for green sputum. No hemoptysis. She feels short of breath after a coughing spell but otherwise denies SOB. She has some anterior chest discomfort associated with cough as well. She has been taking Delsym, Mucinex DM and Tessalon pearls at home with minimal improvement in cough. She has been taking her Albuterol HFA 1-2 times daily but is having difficulty with this due to her coughing. She was also recently prescribed hypertonic NSS nebulizer treatments which she reports she is unable to take due to her cough. Additionally she reports some nausea and vomiting. She had a fever for the first day or two after her bronchoscopy but has not had a fever since. She is complaining of a headache currently, thinks she may be getting a migraine Otherwise, she denies URI symptoms, denies allergy symptoms No additional complaints at this time In the ER she is afebrile, HD stable. +Cough ER Course: Albuterol 3mL neb KCL 40mEq Tessalon 100mg NSS Magnesium 1gm Dexamethasone 10mg IV Zosyn 4.5gm Tylenol 1gm Toradol 10mg IV Allergies Allergy/AdvReac Type Severity Reaction Status Date / Time No Known Allergies Allergy Mild Verified 04/01/24 19:41 Home Medications Medication Instructions Recorded Confirmed Type multivitamin 1 tab PO QAM 03/12/19 04/01/24 History diphenhydramine HCl 25 mg capsule 50 mg PO UD PRN Headache 12/28/19 04/01/24 History (Benadryl) magnesium citrate 100 mg tablet 400 mg PO QAM 12/28/19 04/01/24 History riboflavin (vitamin B2) 400 mg 400 mg PO QAM 12/28/19 04/01/24 History tablet acetaminophen 500 mg oral powder 500 - 1,000 mg PO Q6H PRN Pain 08/30/21 04/01/24 History packet (Tylenol Extra Strength) benzonatate 100 mg capsule 100 mg PO TID PRN cough #30 caps 09/13/23 04/01/24 Rx fluoxetine 20 mg capsule 20 mg PO DAILY #90 caps 11/19/23 04/01/24 Rx fluoxetine 40 mg capsule 40 mg PO DAILY #90 caps 11/19/23 04/01/24 Rx losartan 25 mg tablet 25 mg PO QAM #90 tabs 11/19/23 04/01/24 Rx alprazolam 0.5 mg tablet (Xanax) 0.5 mg PO BID #60 tabs 11/30/23 04/01/24 Rx albuterol sulfate 90 mcg/actuation 2 inh inhalation QID PRN shortness 01/10/24 04/01/24 Rx aerosol inhaler of breath or wheezing #8.5 grams nebulizers #1 ea 01/10/24 03/18/24 Rx sodium chloride 7 % for 4 ml inhalation BID #240 mL 01/10/24 04/01/24 Rx nebulization (Hyper-Royal) clonidine HCl 0.1 mg tablet 0.05 mg (1/2 x 0.1 mg) PO BID #90 02/14/24 04/01/24 Rx tabs levothyroxine 75 mcg tablet 75 mcg PO DAILY #90 tabs 02/14/24 04/01/24 Rx metformin 500 mg tablet 1,000 mg (2 x 500 mg) PO BIDM #360 03/17/24 04/01/24 Rx tabs amoxicillin 500 mg-potassium 1 tab PO BID #10 tabs 03/29/24 04/01/24 Rx clavulanate 125 mg tablet (Augmentin) nadolol 40 mg tablet 40 mg PO BID #180 tabs 03/31/24 04/01/24 Rx Past Med/Surg History Problem List (Updated 04/01/24 @ 22:06 by Beronica Tiwari DO) Electrolyte abnormality Fatigue (Acute) Fatigue Decreased appetite Chronic cough Abnormal CT scan, chest Bronchiectasis Acute bronchitis Abnormal CXR Right hilar and right upper lobe densities are stable to slightly progressed compared to the prior study as described above. Therefore, follow-up chest CT recommended for further evaluation. 08/2023 Vomiting (Acute) Cough (Acute) Encounter for immunization Encounter for pre-operative examination Urinary symptom or sign Routine health maintenance (Chronic) Hyponatremia Anxiety and depression (Chronic) Dyslipidemia (Chronic) Hypothyroidism (acquired) (Chronic) Diabetes mellitus (Chronic) Hypertension (Chronic) Migraine (Chronic) Medical History Spinal stenosis Surgical History H/O bilateral oophorectomy H/O: hysterectomy Family History Mother Breast cancer Aunt Colon cancer Brother Prostate cancer Denies family history of Ovarian cancer Myocardial infarction Colorectal cancer Social History Smoking Status: Never smoker Second Hand Exposure: No; Do You Dip or Chew Tobacco: No; Hx Alcohol Use: No Hx Substance Use: No Preferred Language: Indian Communication Ability: Effective Visual Impairment: Limited Hearing Ability: Normal Corrosion Control Engineer Required: No Beliefs That Will Affect Care: None marital status: Current Living Situation: Spouse current occupational status: retired How many Children do You have: 2 Feels Safe at Home: Yes Childhood Exposure to Second-Hand Smoke: Yes Diet: diabetic and regular caffeine: Yes during the past year weight has: remained stable Dental Care, Regularly: Yes Physical Activity Frequency: Daily Seatbelt Use: always Sunscreen Use: Yes Assistive Devices: Glasses Review of Systems Review of Systems: All systems reviewed & are unremarkable except as noted in HPI & below Physical Exam Physical Exam: General: patient chronically ill in appearance, NAD, resting comfortably, coughing throughout encounter, non-productive Skin: warm, dry, intact, no rashes or lesions HEENT: NC/AT, PERRL, EOMI, anicteric sclera, conjunctiva without injection, external ear normal to inspection and nontender, nares patent, moist mucus membranes, dentition intact, no oropharyngeal lesions, neck supple, trachea midline, no LAD, no thyromegaly, no JVD Heart: +S1/S2, regular, no m/r/g Lungs: equal air entry bilaterally, some rhonchi present in mid lung pope, cleared by coughing, crackles in left base, no wheeze Abd: +BS, soft, NT/ND, no masses/organomegaly/ascites Ext: warm, 2+ pulses in UE/LE bilaterally, no clubbing/cyanosis or edema Neuro: nonfocal, patient AA&O x 4, speech intact, no facial droop, moving all extremities on command with equal strength 5/5 Results & Data Results & Data Vital Signs (Past 12 Hours) Vital Signs Temp Pulse Resp BP BP Pulse Ox O2 Del Method 04/01/24 21:00 58 L 24 168/64 H 94 Room Air 04/01/24 20:30 62 26 H 95 Room Air 04/01/24 19:51 68 22 151/90 H 100 Room Air 04/01/24 19:30 184/79 H 04/01/24 19:00 61 23 175/72 H 99 04/01/24 18:37 68 04/01/24 18:36 36.9 C 66 20 210/105 H 97 Room Air 04/01/24 18:35 183/90 H Laboratory Results Laboratory Results WBC 17.66 K/ul (4.8-10.8) H 04/01/24 18:56 RBC 3.76 M/uL (4.20-5.40) L 04/01/24 18:56 Hgb 10.4 g/dl (12.0-16.0) L 04/01/24 18:56 Hct 31.6 % (37.0-47.0) L 04/01/24 18:56 MCV 84.0 fL (80.0-100.0) 04/01/24 18:56 MCH 27.7 pg (25.0-34.0) 04/01/24 18:56 MCHC 32.9 g/dL (32.0-36.0) 04/01/24 18:56 RDW Std Deviation 45.6 fL (36.4-46.3) 04/01/24 18:56 RDW Coeff of Zhanna 14.9 % (11.5-14.5) H 04/01/24 18:56 Plt Count 599 K/uL (130-400) H 04/01/24 18:56 MPV 9.2 fL (9.4-12.4) L 04/01/24 18:56 Immature Gran % (Auto) 0.5 % 04/01/24 18:56 Neut % (Auto) 82.8 % 04/01/24 18:56 Lymph % (Auto) 8.0 % 04/01/24 18:56 [place] % (Auto) 6.9 % 04/01/24 18:56 Eos % (Auto) 1.5 % 04/01/24 18:56 Baso % (Auto) 0.3 % 04/01/24 18:56 Neut # (Auto) 14.62 K/uL (1.40-6.50) H 04/01/24 18:56 Lymph # (Auto) 1.42 K/uL (1.20-3.40) 04/01/24 18:56 [place] # (Auto) 1.21 K/uL (0.11-0.59) H 04/01/24 18:56 Eos # (Auto) 0.27 K/uL (0.00-0.50) 04/01/24 18:56 Baso # (Auto) 0.06 K/uL (0.00-0.20) 04/01/24 18:56 Immature Gran # (Auto) 0.08 K/uL (0.01-0.20) 04/01/24 18:56 Sodium 133 mmol/L (136-145) L 04/01/24 18:56 Potassium 2.9 mmol/L (3.5-5.1) L 04/01/24 18:56 Chloride 100 mmol/L (98-107) 04/01/24 18:56 Carbon Dioxide 19 mmol/L (21-32) L 04/01/24 18:56 Anion Gap 14 (3-11) H 04/01/24 18:56 BUN 30 mg/dl (6-23) H 04/01/24 18:56 Creatinine 1.04 mg/dl (0.6-1.2) 04/01/24 18:56 Est Cr Clr Drug Dosing 35.8 ml/min 04/01/24 18:56 Est GFR ( Amer) 58.8 ml/min 04/01/24 18:56 Est GFR (Non-Af Amer) 50.7 ml/min 04/01/24 18:56 BUN/Creatinine Ratio 28.8 (10-20) H 04/01/24 18:56 Glucose 145 mg/dl (70-99(Fasting)) H 04/01/24 18:56 Calcium 9.5 mg/dl (8.6-10.3) 04/01/24 18:56 Phosphorus 3.4 mg/dl (2.5-4.9) 04/01/24 18:56 Magnesium 1.2 mg/dl (1.7-2.4) L 04/01/24 18:56 Total Bilirubin 0.3 mg/dl (0.2-1.0) 04/01/24 18:56 AST 13 U/L (13-39) 04/01/24 18:56 ALT 8 U/L (7-52) 04/01/24 18:56 Alkaline Phosphatase 104 U/L (34-104) 04/01/24 18:56 Troponin I High Sens 8.7 pg/ml (0-14) 04/01/24 18:56 B-Natriuretic Peptide 336 pg/ml (0-100) H 04/01/24 18:56 Total Protein 6.6 gm/dl (6.0-8.3) 04/01/24 18:56 Albumin 3.3 gm/dl (3.4-5.0) L 04/01/24 18:56 Globulin 3.3 gm/dl (2.5-4.0) 04/01/24 18:56 Albumin/Globulin Ratio 1.0 (0.9-2) 04/01/24 18:56 Procalcitonin 28.00 ng/ml (0-0.5) H 04/01/24 20:50 TSH 4.328 uIu/ml (0.300-4.500) 04/01/24 18:56 Adenovirus (PCR) Not Detected (NotDetected) 04/01/24 20:24 B. pertussis DNA (PCR) Not Detected (NotDetected) 04/01/24 20:24 B.parapertussis DNA PCR Not Detected (NotDetected) 04/01/24 20:24 C. pneumoniae DNA (PCR) Not Detected (NotDetected) 04/01/24 20:24 Coronavirus OC43 (PCR) Not Detected (NotDetected) 04/01/24 20:24 Coronavirus HKU1 (PCR) Not Detected (NotDetected) 04/01/24 20:24 Coronavirus 229E (PCR) Not Detected (NotDetected) 04/01/24 20:24 SARS-CoV-2 (PCR) Not Detected (NotDetected) 04/01/24 20:24 Coronavirus NL63 (PCR) Not Detected (NotDetected) 04/01/24 20:24 Human Metapneumovir PCR Not Detected (NotDetected) 04/01/24 20:24 Influenza Type A (PCR) Not Detected (NotDetected) 04/01/24 20:24 Influenza Type B (PCR) Not Detected (NotDetected) 04/01/24 20:24 M. pneumoniae (PCR) Not Detected (NotDetected) 04/01/24 20:24 Parainfluenza 1 (PCR) Not Detected (NotDetected) 04/01/24 20:24 Parainfluenza 2 (PCR) Not Detected (NotDetected) 04/01/24 20:24 Parainfluenza 3 (PCR) Not Detected (NotDetected) 04/01/24 20:24 Parainfluenza 4 (PCR) Not Detected (NotDetected) 04/01/24 20:24 RSV (PCR) Not Detected (NotDetected) 04/01/24 20:24 Entero/Rhino (PCR) Not Detected (NotDetected) 04/01/24 20:24 Diagnostic Findings CXR per my interpretation with findings of chronic lung disease, reticulonodular appearance to bilateral lung bases, possible developing left infiltrate ECG Additional Comments: EKG with sinus bradycardia at 59bpm, normal axis, LY=186, PBI=268, QTc prolonged at 536. Some non-specific TW abnormalities PG Care Time/CCT Total # of Minutes Spent Total Time Spent with Patient: Total time spent is greater than 50% in coordination of care (as documented) at patient's floor/unit and/or counseling patient: Coding Level of Care Code 01994 INT INP/OBS CARE Diagnoses Bronchiectasis without complication J47.9 Bronchiectasis type: uncomplicated Electrolyte abnormality E87.8 (1) Bronchiectasis Bronchiectasis type: uncomplicated Qualified Code(s): J47.9 - Bronchiectasis, uncomplicated
[2024-04-01] MEDS: KETOROLAC TROMETHAMINE 15 MG/ML VIAL IV ONE (21:14)
[2024-04-01] MEDS: ACETAMINOPHEN 1,000 MG/100 ML VIAL IV STA (21:14)
[2024-04-01 21:43] LABS: Adenovirus PCR Not Detected (NotDetected); Bordetella parapertussis PCR Not Detected (NotDetected); Bordetella pertussis PCR Not Detected (NotDetected); Chlamydia pneumoniae PCR Not Detected (NotDetected); Coronavirus 229E PCR Not Detected (NotDetected); Coronavirus CoV-2 (COVID19)PCR Not Detected (NotDetected); Coronavirus HKU1 PCR Not Detected (NotDetected); Coronavirus NL63 PCR Not Detected (NotDetected); Coronavirus OC43PCR Not Detected (NotDetected); Human Metapneumovirus PCR Not Detected (NotDetected); Influenza A PCR Not Detected (NotDetected); Influenza B PCR Not Detected (NotDetected); Mycoplasma pneumoniae PCR Not Detected (NotDetected); Parainfluenza Virus 1 PCR Not Detected (NotDetected); Parainfluenza Virus 2 PCR Not Detected (NotDetected); Parainfluenza Virus 3 PCR Not Detected (NotDetected); Parainfluenza Virus 4 PCR Not Detected (NotDetected); Respiratory Syncytial VirusPCR Not Detected (NotDetected); Rhinovirus/Enterovirus PCR Not Detected (NotDetected)
[2024-04-01] MEDS ORDERED: GLUCOSE 10 TAB/TUBE PO PRN (22:46)
[2024-04-01] MEDS ORDERED: DOCUSATE SODIUM 100 MG CAP PO PRN (22:46)
[2024-04-01] MEDS ORDERED: DEXTROSE 50% 50 ML SYRINGE IV PRN (22:46)
[2024-04-01] MEDS ORDERED: CARBOHYDRATES FOR HYPOGLYCEMIA PO PRN (22:46)
[2024-04-01] MEDS ORDERED: POLYETHYLENE (MIRALAX) 17 GM PACK PO PRN (22:46)
[2024-04-01] MEDS ORDERED: GLUCAGON FOR INJ 1 MG VIAL SQ PRN (22:46)
[2024-04-01] MEDS ORDERED: GLUCOSE 40% GEL 15 GM TUBE PO PRN (22:46)
[2024-04-01] MEDS: ALBUTEROL 0.5% NEB SOLN 2.5 MG/0.5 ML VIAL NEB PRN (23:34)
[2024-04-01] MEDS: SODIUM CHLOR 7% 4 ML NEB INH SCH (23:34)
[2024-04-01] MEDS: BENZONATATE 100 MG CAPSULE PO SCH (23:46)
[2024-04-01] MEDS: nadoloL 40 MG TAB PO SCH (23:47)
[2024-04-01] MEDS: oxyCODONE HCL IR 5 MG TAB (IMMEDIATE RELEASE) PO STA (23:47)
[2024-04-01] MEDS: guaiFENesin 600 MG TABCR PO SCH (23:48)
[2024-04-01] MEDS: LACTATED RINGER'S 1,000 ML IV SCH (23:49)
[2024-04-01] MEDS: cloNIDine HCL 0.1 MG TAB PO SCH (23:49)
[2024-04-02] MEDS: MAGNESIUM SULFATE / D5W 1 GM/100 ML BAG IV ONE (00:03)
[2024-04-02] MEDS: ALPRAZolam 0.5 MG TABLET PO SCH (00:19)
[2024-04-02] MEDS: PIPERACILLIN/TAZOBACTAM 4.5 GM in DEXTROSE 5% MINI-B 100 ML IV SCH (02:08)
[2024-04-02] MEDS: LEVOTHYROXINE SODIUM 75 MCG TABLET PO SCH (05:55)
[2024-04-02 07:16] LABS: Hematocrit (blood only) 29.7 % (37.0-47.0); Hemoglobin 9.9 g/dl (12.0-16.0); Mean Corpuscular Hemoglobin 27.6 pg (25.0-34.0); Mean Corpuscular Hgb Conc 33.3 g/dL (32.0-36.0); Mean Corpuscular Volume 82.7 fL (80.0-100.0); Mean Platelet Volume 9.4 fL (9.4-12.4); Platelet Count 717 K/uL (130-400); RDW Coefficient of Variation 14.9 % (11.5-14.5); RDW Standard Deviation 45.4 fL (36.4-46.3); Red Blood Count 3.59 M/uL (4.20-5.40); White Blood Count 22.33 K/ul (4.8-10.8)
[2024-04-02 07:33] LABS: BUN Creatinine Ratio 36.6 (10-20); Calcium 8.5 mg/dl (8.6-10.3); Creatinine Clr Calc Pharmacy 44.5 ml/min; Est GFR (African American) 78.3 ml/min; Est GFR (Non-African American) 67.6 ml/min; Magnesium 1.9 mg/dl (1.7-2.4); Potassium 4.3 mmol/L (3.5-5.1)
--- NOTE | 2024-04-02 07:35 | XRay Report ---
XR chest 1V portable HISTORY: cough COMPARISON: Chest CT 03/25/2024. FINDINGS: Patchy bilateral airspace opacities and bronchiectasis persist. The heart is top normal in size. No pleural effusions. No pneumothorax. IMPRESSION: Patchy bilateral airspace opacities again noted. This favors a multifocal pneumonia. ACT 112: Negative or not required by law. Electronically signed by: Maxime Sahni M.D. 04/02/2024 7:33 AM
[2024-04-02] MEDS: LOSARTAN POTASSIUM 25 MG TAB PO SCH (08:29)
[2024-04-02] MEDS: FLUoxetine HCL 20 MG CAP PO SCH (08:29)
[2024-04-02] MEDS: ENOXAPARIN INJ 30 MG/0.3 ML SYR SQ SCH (08:31)
[2024-04-02] MEDS: INSULIN ASPART PER UNIT CHARGE SC SCH ×2 (08:38→20:21)
[2024-04-02] MEDS ORDERED: FLUoxetine HCL 20 MG CAP PO SCH (09:00)
[2024-04-02] MEDS: UMECLIDINIUM BROMIDE 62.5MCG/BLISTER 7 PUFFS/INHALER INH SCH (12:06)
[2024-04-02] MEDS: HYDROcodone/HOMATROPINE SYRUP 5MG/1.5MG 5ML UDP PO PRN (12:41)
[2024-04-02] MEDS: ACETAMINOPHEN 325 MG TAB PO PRN (12:41)
--- NOTE | 2024-04-02 13:47 | Hospitalist Progress Note ---
Date of Service April 02, 2024 Assessment & Plan (1) Bronchiectasis: (2) Electrolyte abnormality: (3) Hypertension: (4) Migraine: (5) Hypothyroidism (acquired): (6) Anxiety and depression: (7) Diabetes mellitus: Plan 79 yo female PMHx bronchiectasis, HTN, HLP, DM admitted with persistent cough #Bronchiectasis Bronchoscopy +MSSA, Legionella neg, atypical mycobacterial cx pending Leukocytosis 17 at admission, increased today following steroid dose Procal 28; biofire neg, MRSA neg On zosyn Albuterol q2h PRN Hypertonic saline BID Tessalon Perles 100mg TID Mucinex 1200mg BID Hycodan PRN Add Incruse ?need for fungal coverage #Electrolytes Mild hyponatremia Potassium, mag normalized Replete as indicated #HTN clonidine 0.5mg BID losartan nadolol #Migraine Resolved Pain management PRN #Depression/Anxiety Fluoxetine, alprazolam #T2DM metformin held ISS FENGI: heart healthy Code status: full DVT prophylaxis: Lovenox Isolation: none Disposition: medical Admission and Anticipated Discharge Date Admission Date: April 01, 2024 Supervising Physician Co-Signing Physician Notes I personally examined the patient and verified all hussein points of history and exam, discussed case, and agree with decision making with Dr Lee Patient sleeping quite soundly. notes that she has been struggling with cough and shortness of breath for quite a while. Does note that whenever she was on antibiotics she would feel better for a while and then start to worsen again a few days afterwards. Vitals noted, in general she is sleeping comfortably appears to be in no distress. Breathing unlabored no accessory muscle use good effort. Skin without rashes pallor or icterus. Neuro without focal deficits. Bronchiectasis/exacerbation/failed outpatient treatmentcertainly could to be more bacteria than this staph grownfollowing on Zosyn. If fails this, the question would be if she just needs more aggressive pulmonary toilet or if the yeast or other microbes are legitimate offenderscontinue to follow. For pulmonary toilet purposesescalate her inhaler regimen as though her COPD is more severe than her PFTs would suggest, continue flutter valve, continue hype rtonic saline nebs. DVT prophylaxis Lovenox Subjective Patient seen and evaluated at bedside this morning. No acute events overnight. Feeling better since admission. Breathing well. Review of Systems Review of Systems: reviewed, per HPI Physical Exam Physical Exam: Constitutional: well-appearing, no acute distress HEENT: NCAT CV: regular rhythm, no murmur appreciated, extremities well-perfused, no LE edema Resp: CTABL, decreased air entry b/l lung bases, no wheezes/rales/rhonchi appreciated, no increased work of breathing MSK: no gross deformities appreciated Skin: warm, dry, no rash appreciated Neuro: alert, oriented, no focal neurologic deficit appreciated Results & Data Results & Data Vital Signs (Past 12 Hours) Vital Signs Temp Pulse Resp BP Pulse Ox O2 Del Method 04/02/24 09:55 Room Air 04/02/24 08:15 36.4 C L 56 L 18 107/56 L 93 Room Air 04/02/24 07:47 69 18 94 Room Air Resident Activity Tracking Resident Involvement: Resident Care Provided Care Provided: Adult [facility] [place] (1) Bronchiectasis Bronchiectasis type: uncomplicated Qualified Code(s): J47.9 - Bronchiectasis, uncomplicated (3) Hypertension Hypertension type: primary hypertension Qualified Code(s): I10 - Essential (primary) hypertension (7) Diabetes mellitus Diabetes mellitus complication status: without complication Diabetes mellitus intermodal customer service insulin use: without intermodal customer service use Diabetes mellitus type: type 2 Qualified Code(s): E11.9 - Type 2 diabetes mellitus without complications
[2024-04-02] MEDS: KETOROLAC TROMETHAMINE 15 MG/ML VIAL IV ONE (15:47)
[2024-04-02] MEDS: MAGNESIUM SULFATE / D5W 1 GM/100 ML BAG IV SCH (15:52)
[2024-04-02] MEDS ORDERED: CARBOHYDRATES FOR HYPOGLYCEMIA PO PRN (18:06)
[2024-04-02] MEDS ORDERED: GLUCOSE 40% GEL 15 GM TUBE PO PRN (18:06)
[2024-04-02] MEDS ORDERED: GLUCOSE 10 TAB/TUBE PO PRN (18:06)
[2024-04-02] MEDS ORDERED: GLUCAGON FOR INJ 1 MG VIAL SQ PRN (18:06)
[2024-04-02] MEDS ORDERED: DEXTROSE 50% 50 ML SYRINGE IV PRN (18:06)
--- NOTE | 2024-04-02 18:48 | Billing Data ---
Date of Service April 02, 2024 Coding Level of Care Code 95207 SUB INP/OBS CARE
--- NOTE | 2024-04-02 18:49 | Billing Data ---
Date of Service April 02, 2024 Coding Level of Care Code 36023 SUB INP/OBS CARE
[2024-04-02] MEDS: LANTUS PER UNIT CHARGE SQ SCH (20:21)
[2024-04-03] MEDS: oxyCODONE HCL IR 5 MG TAB (IMMEDIATE RELEASE) PO PRN (01:35)
[2024-04-03] MEDS: FLUTICASONE/VILANTEROL 200/25MCG 14 PUFFS/INHALER INH SCH (07:53)
[2024-04-03 08:57] LABS: Basophils # (auto) 0.03 K/uL (0.00-0.20); Basophils % (auto) 0.1 %; Eosinophils # (auto) 0.14 K/uL (0.00-0.50); Eosinophils % (auto) 0.6 %; Hematocrit (blood only) 28.5 % (37.0-47.0); Hemoglobin 9.4 g/dl (12.0-16.0); Immature Granulocytes # (auto) 0.57 K/uL (0.01-0.20); Immature Granulocytes % (auto) 2.4 %; Lymphocytes # (auto) 2.49 K/uL (1.20-3.40); Lymphocytes % (auto) 10.4 %; Mean Corpuscular Hemoglobin 27.6 pg (25.0-34.0); Mean Corpuscular Volume 83.6 fL (80.0-100.0); Mean Platelet Volume 9.3 fL (9.4-12.4); Monocytes # (auto) 1.37 K/uL (0.11-0.59); Monocytes % (auto) 5.7 %; Neutrophils # (auto) 19.27 K/uL (1.40-6.50); Neutrophils % (auto) 80.8 %; Platelet Count 672 K/uL (130-400); RDW Coefficient of Variation 14.8 % (11.5-14.5); RDW Standard Deviation 45.1 fL (36.4-46.3); Red Blood Count 3.41 M/uL (4.20-5.40); White Blood Count 23.87 K/ul (4.8-10.8)
[2024-04-03 09:10] LABS: BUN Creatinine Ratio 47.9 (10-20); C Reactive Protein 8.52 mg/dl (0-0.5); Calcium 8.5 mg/dl (8.6-10.3); Est GFR (African American) 90.2 ml/min; Est GFR (Non-African American) 77.8 ml/min
--- NOTE | 2024-04-03 17:07 | Hospitalist Progress Note ---
Date of Service April 03, 2024 Assessment & Plan (1) Bronchiectasis: (2) Electrolyte abnormality: (3) Hypertension: (4) Migraine: (5) Hypothyroidism (acquired): (6) Anxiety and depression: (7) Diabetes mellitus: Plan 79 yo female PMHx bronchiectasis, HTN, HLP, DM admitted with persistent cough #Bronchiectasis Bronchoscopy +MSSA, Legionella neg, atypical mycobacterial cx pending Continue to follow leukocytosis biofire neg, MRSA neg Trend Procal, CRP On zosyn Albuterol q2h PRN Hypertonic saline BID Tessalon Perles 100mg TID Mucinex 1200mg BID Hycodan PRN Add Incruse ?need for fungal coverage #Electrolytes Mild hyponatremia Potassium, mag normalized Replete as indicated #HTN clonidine 0.5mg BID losartan nadolol #Migraine Resolved Pain management PRN #Depression/Anxiety Fluoxetine, alprazolam #T2DM metformin held ISS FENGI: heart healthy Code status: full DVT prophylaxis: Lovenox Isolation: none Disposition: medical Admission and Anticipated Discharge Date Admission Date: April 02, 2024 Supervising Physician Co-Signing Physician Notes I personally examined the patient and verified all hussein points of history and exam, discussed case, and agree with decision making with Dr Lee Breathing feeling better. Does feel sick to her stomach. Nauseated. Cannot really eat due to nausea. Also notes no bowel movement in about the last 2 days. Vitals noted, in general she is awake and alert fatigued and appears a little bit upset/mild distress due to abdominal discomfort and nausea. HEENT normocephalic atraumatic mucous membranes moist. Breathing unlabored no accessory muscle use good effort. Skin shows no rashes no pallor or icterus. Neuro without focal deficits. Abdomen is soft moderately distended she does have epigastric tenderness but also a degree of diffuse tendernessno guarding rebound or rigidity. Bronchiectasis/exacerbation/failed outpatient treatment Possible pneumonia with bacterial overgrowth in the mucus of her bronchiectasis. Respiratory symptoms are improving, leukocytosis worsensbut suspect this was steroid effect, given her inflammatory markers are otherwise more reassuring. Continue Zosyn. I am starting to wonder if her chronic mucus from her bronchiectasis is just essentially a constant "Renee dish" allowing for more bacterial overgrowth. This would fit with feeling better on doxycycline and then worse right afterwards, feeling better on Zosyn nowobviously if she were to worsen right afterwards this would fit quite well. Treating her COPD portion of this more aggressively than the COPD itself warrants, hopefully to be able to enhance pulmonary toilet. Encouraged use of flutter valve. Continue saline nebs. Doubt yeast or Mycobacterium play a role, but if she continues to worsen then might need pulmonary eval abdominal pain nauseamost likely constipation, cannot rule out a degree of stress-induced gastritiswill treat with acid suppression given that it often will help with the symptoms anyway, MiraLAX twice daily. DVT prophylaxis Lovenox Subjective Patient seen and evaluated at bedside this morning. No acute events overnight. Overall feeling better since admission. Review of Systems Review of Systems: reviewed, per HPI Physical Exam Physical Exam: Constitutional: well-appearing, no acute distress HEENT: NCAT CV: regular rhythm, no murmur appreciated, extremities well-perfused, no LE edema Resp: CTABL, decreased air entry b/l lung bases, no wheezes/rales/rhonchi appreciated, no increased work of breathing MSK: no gross deformities appreciated Skin: warm, dry, no rash appreciated Neuro: alert, oriented, no focal neurologic deficit appreciated Results & Data Results & Data Vital Signs (Past 12 Hours) Vital Signs Temp Pulse Resp BP Pulse Ox O2 Del Method 04/03/24 14:09 36.6 C 56 L 16 127/60 93 Room Air 04/03/24 08:00 Room Air 04/03/24 07:38 60 18 92 Room Air 04/03/24 06:55 36.5 C 55 L 16 116/59 L 93 Room Air Resident Activity Tracking Resident Involvement: Resident Care Provided Care Provided: Adult Hospital Medicine (1) Bronchiectasis Bronchiectasis type: uncomplicated Qualified Code(s): J47.9 - Bronchiectasis, uncomplicated (3) Hypertension Hypertension type: primary hypertension Qualified Code(s): I10 - Essential (primary) hypertension (7) Diabetes mellitus Diabetes mellitus complication status: without complication Diabetes mellitus terminal operations manager insulin use: without terminal operations manager use Diabetes mellitus type: type 2 Qualified Code(s): E11.9 - Type 2 diabetes mellitus without complications
[2024-04-03] MEDS: KETOROLAC TROMETHAMINE 15 MG/ML VIAL IV ONE (17:55)
[2024-04-03] MEDS: MAGNESIUM SULFATE / D5W 1 GM/100 ML BAG IV SCH (17:55)
[2024-04-03] MEDS: SODIUM CHLORIDE 0.9% 1,000 ML IV SCH (17:56)
--- NOTE | 2024-04-03 18:21 | Billing Data ---
Date of Service April 03, 2024 Coding Level of Care Code 40020 SUB INP/OBS CARE MIN
--- NOTE | 2024-04-03 18:21 | Billing Data ---
Date of Service April 03, 2024 Coding Level of Care Code 34269 SUB INP/OBS CARE MIN
[2024-04-03] MEDS: PANTOprazole 40 MG in SYRINGE 0 ML IV SCH (20:37)
[2024-04-03] MEDS: POLYETHYLENE (MIRALAX) 17 GM PACK PO SCH (20:38)
[2024-04-03] MEDS: FAMOTIDINE 20 MG TAB PO SCH (20:38)
[2024-04-03] MEDS: MELATONIN 3 MG TAB PO PRN (22:42)
[2024-04-04] MEDS: LIDOCAINE 5% 1 PATCH TD SCH (00:06)
[2024-04-04] MEDS ORDERED: Nursing to Pharmacy Communication SCH ×2 (01:30→09:30)
[2024-04-04] MEDS: INSULIN ASPART PER UNIT CHARGE SC SCH ×2 (05:56→12:14)
[2024-04-04 06:51] LABS: Basophils # (auto) 0.03 K/uL (0.00-0.20); Basophils % (auto) 0.2 %; Eosinophils # (auto) 0.93 K/uL (0.00-0.50); Eosinophils % (auto) 5.8 %; Hematocrit (blood only) 26.6 % (37.0-47.0); Hemoglobin 8.7 g/dl (12.0-16.0); Immature Granulocytes # (auto) 0.13 K/uL (0.01-0.20); Immature Granulocytes % (auto) 0.8 %; Lymphocytes # (auto) 2.47 K/uL (1.20-3.40); Lymphocytes % (auto) 15.5 %; Mean Corpuscular Hemoglobin 26.9 pg (25.0-34.0); Mean Corpuscular Hgb Conc 32.7 g/dL (32.0-36.0); Mean Corpuscular Volume 82.4 fL (80.0-100.0); Mean Platelet Volume 9.1 fL (9.4-12.4); Monocytes # (auto) 1.47 K/uL (0.11-0.59); Monocytes % (auto) 9.2 %; Neutrophils # (auto) 10.91 K/uL (1.40-6.50); Neutrophils % (auto) 68.5 %; Platelet Count 631 K/uL (130-400); RDW Coefficient of Variation 15.6 % (11.5-14.5); RDW Standard Deviation 47.1 fL (36.4-46.3); Red Blood Count 3.23 M/uL (4.20-5.40); White Blood Count 15.94 K/ul (4.8-10.8)
[2024-04-04 07:06] VITALS: RESP 16
[2024-04-04 07:06] LABS: BUN Creatinine Ratio 47.3 (10-20); Calcium 8.9 mg/dl (8.6-10.3); Creatinine Clr Calc Pharmacy 66.3 ml/min; Est GFR (African American) 102.7 ml/min; Est GFR (Non-African American) 88.6 ml/min; Magnesium 1.7 mg/dl (1.7-2.4); Potassium 3.6 mmol/L (3.5-5.1)
--- NOTE | 2024-04-04 08:32 | XRay Report ---
KUB CLINICAL HISTORY: Generalized abdominal pain. FINDINGS: AP, portable, supine abdominal radiograph is compared to study dated 08/31/2019 and correlat ed with abdominal CT dated 12/28/2019. There is a nonobstructed abdominal bowel gas pattern. Mild fecal retention is seen throughout the colon. No evidence of intraperitoneal free air is identified on thi s supine image. There are no abnormal abdominal calcifications. The skeletal structures are osteopeni c and appear intact. Moderate lumbosacral spondylosis is observed. IMPRESSION: No acute abnormality is identified. Electronically signed by: Oracio Teague M.D. 04/04/2024 8:31 AM
[2024-04-04] MEDS: oxyCODONE HCL IR 5 MG TAB (IMMEDIATE RELEASE) PO PRN (13:02)
[2024-04-04] MEDS: POLYETHYLENE (MIRALAX) 17 GM PACK PO SCH (13:02)
--- NOTE | 2024-04-04 15:18 | Hospitalist Progress Note ---
Date of Service April 04, 2024 Assessment & Plan (1) Bronchiectasis: (2) Electrolyte abnormality: (3) Hypertension: (4) Migraine: (5) Hypothyroidism (acquired): (6) Anxiety and depression: (7) Diabetes mellitus: Plan 79 yo female PMHx bronchiectasis, HTN, HLP, DM admitted with persistent cough #Bronchiectasis Bronchoscopy +MSSA, Legionella neg, atypical mycobacterial cx pending Continue to follow leukocytosis biofire neg, MRSA neg Trend Procal, CRP On zosyn Albuterol q2h PRN Hypertonic saline BID Tessalon Perles 100mg TID Mucinex 1200mg BID Hycodan PRN Add Incruse ellipta ?need for fungal coverage #Deconditioning Tolerated PT poorly Recommend acute rehab #Electrolytes Mild hyponatremia Potassium, mag normalized Replete as indicated #HTN clonidine 0.5mg BID losartan nadolol #Migraine Resolved 2g mag + 15mg toradol helps #Depression/Anxiety Fluoxetine, alprazolam #T2DM metformin held ISS FENGI: heart healthy Code status: full DVT prophylaxis: Lovenox Isolation: none Disposition: medical Admission and Anticipated Discharge Date Admission Date: April 02, 2024 Supervising Physician Co-Signing Physician Notes I personally examined the patient and verified all hussein points of history and exam, discussed case, and agree with decision making with Dr Lee stomach feels better. Breathing feels better. Was hoping to get home today. Did not do well with physical therapy. Vitals noted, in general she is awake and alert pleasant no distress. Breathing unlabored no accessory muscle use good effort. Skin shows no rashes no pallor or icterus. Neuro without focal deficits. Bronchiectasis/exacerbation/failed outpatient treatment Possible pneumonia with bacterial overgrowth in the mucus of her bronchiectasis. Respiratory symptoms are improving, Continue Zosyn. I am starting to wonder if her chronic mucus from her bronchiectasis is just essentially a constant "Renee dish" allowing for more bacterial overgrowth. This would fit with feeling better on doxycycline and then worse right afterwards, feeling better on Zosyn nowobviously if she were to worsen right afterwards this would fit quite well. Treating her COPD portion of this more aggressively than the COPD itself warrants, hopefully to be able to enhance pulmonary toilet. Encouraged use of flutter valve. Continue saline nebs. Doubt yeast or Mycobacterium play a role, but if she continues to worsen then might need pulmonary eval. In this regard she would be stable for homeprobably on antibiotics with Augmentin for 14 total days of treatment, and ongoing escalated inhaler therapy, as well as close pulmonary follow-up. Unfortunately with her weakness, it looks like she may need rehab. abdominal pain nauseamost likely constipation, cannot rule out a degree of stress-induced gastritis Treating with acid suppression given that it often will help with the symptoms anyway, MiraLAX twice daily. this has improved nicely DVT prophylaxis Lovenox Subjective Patient seen and evaluated at bedside this morning. No acute events overnight. Overall feeling better since admission. Review of Systems Review of Systems: reviewed, per HPI Physical Exam Physical Exam: Constitutional: no acute distress HEENT: NCAT CV: regular rhythm, no murmur appreciated, extremities well-perfused, no LE edema Resp: CTABL, decreased air entry b/l lung bases, no wheezes/rales/rhonchi appreciated, no increased work of breathing MSK: no gross deformities appreciated Skin: warm, dry, no rash appreciated Neuro: alert, oriented, no focal neurologic deficit appreciated Results & Data Results & Data Vital Signs (Past 12 Hours) Vital Signs Temp Pulse Resp BP Pulse Ox O2 Del Method 04/04/24 08:00 Room Air 04/04/24 07:05 36.6 C 57 L 16 159/65 H 93 Room Air Resident Activity Tracking Resident Involvement: Resident Care Provided Care Provided: Adult Hospital Medicine (1) Bronchiectasis Bronchiectasis type: uncomplicated Qualified Code(s): J47.9 - Bronchiectasis, uncomplicated (3) Hypertension Hypertension type: primary hypertension Qualified Code(s): I10 - Essential (primary) hypertension (7) Diabetes mellitus Diabetes mellitus complication status: without complication Diabetes mellitus rat exterminator insulin use: without rat exterminator use Diabetes mellitus type: type 2 Qualified Code(s): E11.9 - Type 2 diabetes mellitus without complications
--- NOTE | 2024-04-04 18:35 | Billing Data ---
Date of Service April 04, 2024 Coding Level of Care Code 81224 SUB INP/OBS CARE MIN
--- NOTE | 2024-04-04 22:00 | Electrocardiogram Report ---
Test Reason : Blood Pressure : / mmHG Vent. Rate : 059 BPM Atrial Rate : 059 BPM P-R Int : 184 ms QRS Dur : 106 ms QT Int : 640 ms P-R-T Axes : 078 025 014 degrees QTc Int : 635 ms Sinus bradycardia Possible Left atrial enlargement Incomplete right bundle branch block T wave abnormality, consider anterior ischemia Prolonged QT Abnormal ECG When compared with ECG of 18-NOV-2021 14:30, Incomplete right bundle branch block is now Present QT has lengthened Confirmed by Ty Berman ([id number]) on 04/04/2024 10:00:22 PM Referred By: REFERRED SELF Confirmed By:Ty Berman
[2024-04-05 07:48] LABS: Basophils # (auto) 0.03 K/uL (0.00-0.20); Basophils % (auto) 0.3 %; Eosinophils # (auto) 0.73 K/uL (0.00-0.50); Eosinophils % (auto) 6.2 %; Hematocrit (blood only) 25.6 % (37.0-47.0); Hemoglobin 8.5 g/dl (12.0-16.0); Immature Granulocytes # (auto) 0.08 K/uL (0.01-0.20); Immature Granulocytes % (auto) 0.7 %; Lymphocytes # (auto) 2.74 K/uL (1.20-3.40); Lymphocytes % (auto) 23.4 %; Mean Corpuscular Hemoglobin 27.2 pg (25.0-34.0); Mean Corpuscular Hgb Conc 33.2 g/dL (32.0-36.0); Mean Corpuscular Volume 81.8 fL (80.0-100.0); Mean Platelet Volume 9.2 fL (9.4-12.4); Monocytes % (auto) 9.4 %; Neutrophils # (auto) 7.01 K/uL (1.40-6.50); Platelet Count 570 K/uL (130-400); RDW Coefficient of Variation 15.9 % (11.5-14.5); RDW Standard Deviation 47.2 fL (36.4-46.3); Red Blood Count 3.13 M/uL (4.20-5.40); White Blood Count 11.69 K/ul (4.8-10.8)
--- NOTE | 2024-04-05 07:56 | Hospitalist Progress Note ---
Date of Service April 05, 2024 Assessment & Plan (1) Bronchiectasis: (2) Electrolyte abnormality: (3) Hypertension: (4) Migraine: (5) Hypothyroidism (acquired): (6) Anxiety and depression: (7) Diabetes mellitus: Plan Pt is an 79 yo female PMHx bronchiectasis, HTN, HLP, DM admitted for bronchiectasis exac/pneumonia and deconditioning. #Bronchiectasis - Bronchoscopy +MSSA, Legionella neg, atypical mycobacterial cx pending - biofire neg, MRSA neg - continue Albuterol q2h PRN, Hypertonic saline BID, Tessalon Perles 100mg TID, Mucinex 1200mg BID, Hycodan PRN, Incruse ellipta - continue zosyn, will transition to augmentin for 14 days total ABs upon discharge #Deconditioning Tolerated PT poorly Recommend acute rehab, pending placement #Altered mental status - noted to have some disorientation in the mornings - altered mentation differential includes acute delirium in the hospital setting vs chronic dementia vs a mixture of both, f/u with pcp on discharge #HTN clonidine 0.5mg BID losartan nadolol #Migraine, Resolved 2g mag + 15mg toradol helped #Depression/Anxiety Fluoxetine, alprazolam #T2DM metformin held ISS Admission and Anticipated Discharge Date Admission Date: April 02, 2024 Supervising Physician Co-Signing Physician Notes I personally examined the patient and verified all hussein points of history and exam, discussed case, and agree with decision making with Dr Salvador sleeping comfortably. Awaiting SNF placement. Vitals noted. Breathing unlabored at rest. Skin without rashes pallor or icterus. Exam otherwise as above. Bronchiectasis/exacerbation/failed outpatient treatment Possible pneumonia with bacterial overgrowth in the mucus of her bronchiectasis. Respiratory symptoms are improving, Continue Zosyn. I am starting to wonder if her chronic mucus from her bronchiectasis is just essentially a constant "Renee dish" allowing for more bacterial overgrowth. This would fit with feeling better on doxycycline and then worse right afterwards, feeling better on Zosyn nowobviously if she were to worsen right afterwards this would fit quite well. Treating her COPD portion of this more aggressively than the COPD itself warrants, hopefully to be able to enhance pulmonary toilet. Encouraged use of flutter valve. Continue saline nebs. Doubt yeast or Mycobacterium play a role, but if she continues to worsen then might need pulmonary eval. In this regard she would be stable for homeprobably on antibiotics with Augmentin for 14 total days of treatment, and ongoing escalated inhaler therapy, as well as close pulmonary follow-up. Unfortunately with her weakness, She is now pending SNF/rehab emphasis. abdominal pain nauseamost likely constipation, cannot rule out a degree of stress-induced gastritis De-escalate acid suppression, continue constipation management as needed DVT prophylaxis Lovenox otherwise as above Subjective Pt is an 79 yo female PMHx bronchiectasis, HTN, HLP, DM admitted for bronchiectasis exac/pneumonia and deconditioning. Today, pt was seen this morning and complained that she feels achy everywhere and that she misses her and just wants to see him. She does also note that she understands she is in the hospital but the room does not look like a hospital room to her and it is confusing for her. Spoke to pt's nurse this morning who states this is consistent with how she has been the past several mornings with having some confusion and asking for her and once she wakes up a bit more she calms and acts normal again. Pt states her breathing today feels okay, her biggest complaint this morning is she states she just wants to see her and she repeats this request. Advised pt that should be coming later today. Review of Systems Review of Systems: Per HPI. Physical Exam Physical Exam: General:Alert, no acute distress but upset this morning HEENT: Normocephalic, moist oral mucosa, Cardio: Regular rate and rhythm, no murmur, Resp:Lungs with some faint bilateral rhonchi in middle/lower lobes GI: Soft and nontender, nondistended, Skin: Warm, pink, dry, Results & Data Results & Data Vital Signs (Past 12 Hours) Vital Signs Temp Pulse Resp BP Pulse Ox O2 Del Method 04/05/24 07:02 36.5 C 70 16 173/64 H 96 Room Air 04/04/24 20:20 36.3 C L 65 16 188/71 H 95 Room Air 04/04/24 20:05 68 16 93 Room Air Resident Activity Tracking Resident Involvement: Resident Care Provided Care Provided: Adult Hospital Medicine (1) Bronchiectasis Bronchiectasis type: uncomplicated Qualified Code(s): J47.9 - Bronchiectasis, uncomplicated (3) Hypertension Hypertension type: primary hypertension Qualified Code(s): I10 - Essential (primary) hypertension (7) Diabetes mellitus Diabetes mellitus complication status: without complication Diabetes mellitus terminal clerk insulin use: without senior living use Diabetes mellitus type: type 2 Qualified Code(s): E11.9 - Type 2 diabetes mellitus without complications
[2024-04-05 08:07] LABS: Calcium 8.4 mg/dl (8.6-10.3); Est GFR (African American) 105.9 ml/min; Est GFR (Non-African American) 91.4 ml/min; Magnesium 1.3 mg/dl (1.7-2.4); Potassium 3.1 mmol/L (3.5-5.1)
[2024-04-05] MEDS ORDERED: POLYETHYLENE (MIRALAX) 17 GM PACK PO PRN (08:59)
[2024-04-05] MEDS: MAGNESIUM OXIDE 400 MG TAB PO SCH (09:45)
--- NOTE | 2024-04-05 12:03 | Billing Data ---
Date of Service April 05, 2024 Coding Level of Care Code 72820 SUB INP/OBS CARE
[2024-04-05 14:30] VITALS: BP 180/76; PULSE 63; TEMP 98.2; O2SAT 97
--- NOTE | 2024-04-05 16:54 | Discharge Summary ---
Date of Service April 05, 2024 Admission HPI Per Admitting Provider Erma Medel is a pleasant 79yo female with history of Bronchiectasis, HTN, HLP and DM presenting with persistent cough. Patient follows with Pulmonary. She has an expectorated sputum from 02/12/24 which was POSITIVE for staphylococcus aureus (MSSA). She was treated with Doxycycline - 11 day course. AFB smear and culture from 02/12/24 is NEGATIVE. She was seen by Pulmonary in clinic on 03/20/24 with complaint of ongoing cough, fatigue, decreased energy, poor sleep and decreased oral intake. She had a bronchoscopy performed on 03/27/24. The culture from that study showed persistent MSSA. Her AFB smear is NEGATIVE and AFB culture is still pending. Patient has been started on a 10 day course of Augmentin (has taken 2 doses thus far). Patient reports ongoing, persistent cough which keeps her awake at night, int erferes with her meals and makes it difficult for her to take her medications. Cough is productive for green sputum. No hemoptysis. She feels short of breath after a coughing spell but otherwise denies SOB. She has some anterior chest discomfort associated with cough as well. She has been taking Delsym, Mucinex DM and Tessalon pearls at home with minimal improvement in cough. She has been taking her Albuterol HFA 1-2 times daily but is having difficulty with this due to her coughing. She was also recently prescribed hypertonic NSS nebulizer treatments which she reports she is unable to take due to her cough. Additionally she reports some nausea and vomiting. She had a fever for the first day or two after her bronchoscopy but has not had a fever since. She is complaining of a headache currently, thinks she may be getting a migraine Otherwise, she denies URI symptoms, denies allergy symptoms No additional complaints at this time In the ER she is afebrile, HD stable. +Cough ER Course: Albuterol 3mL neb KCL 40mEq Tessalon 100mg NSS Magnesium 1gm Dexamethasone 10mg IV Zosyn 4.5gm Tylenol 1gm Toradol 10mg IV Admission Exam Per Admitting Provider General: patient chronically ill in appearance, NAD, resting comfortably, coughing throughout encounter, non-productive Skin: warm, dry, intact, no rashes or lesions HEENT: NC/AT, PERRL, EOMI, anicteric sclera, conjunctiva without injection, external ear normal to inspection and nontender, nares patent, moist mucus membranes, dentition intact, no oropharyngeal lesions, neck supple, trachea midline, no LAD, no thyromegaly, no JVD Heart: +S1/S2, regular, no m/r/g Lungs: equal air entry bilaterally, some rhonchi present in mid lung pope, cleared by coughing, crackles in left base, no wheeze Abd: +BS, soft, NT/ND, no masses/organomegaly/ascites Ext: warm, 2+ pulses in UE/LE bilaterally, no clubbing/cyanosis or edema Neuro: nonfocal, patient AA&O x 4, speech intact, no facial droop, moving all extremities on command with equal strength 5/5 Principal Diagnosis Bronchiectasis exac Discharge Exam General:Alert and oriented, no acute distress but upset HEENT: Normocephalic, moist oral mucosa, Cardio: Regular rate and rhythm, no murmur, Resp:Lungs with some faint bilateral rhonchi in middle/lower lobes GI: Soft and nontender, nondistended, Skin: Warm, pink, dry, Discharge Data Allergies Allergy/AdvReac Type Severity Reaction Status Date / Time No Known Allergies Allergy Mild Verified 04/01/24 19:41 Consultations 04/01/24 20:01 ED Decision to Admit Stat Hospital Course (1) Bronchiectasis: (2) Electrolyte abnormality: (3) Hypertension: (4) Migraine: (5) Hypothyroidism (acquired): (6) Anxiety and depression: (7) Diabetes mellitus: Plan Pt is an 79 yo female PMHx bronchiectasis, HTN, HLP, DM admitted for bronchiectasis exac/pneumonia and deconditioning. Pt seen this afternoon insisting to go home. She states she does not want to stay here any longer and at this point would just like to go home. She has her at home for support. See attending attestation for further conversation with Dr. Murillo. I did inform patient that I have several concerns about her going home at this point as she did poorly with PT and concerned about fall risk being very significant for her, especially as she was noted to be somewhat confused this morning. I informed case management and they faxed over for home PT services and will reengage case management tomorrow to set up home health as they are now out of office. I think if pt is not willing to do rehab that home health services and home or outpatient PT services would be most beneficial for her. #Bronchiectasis - Bronchoscopy showed +MSSA, Legionella neg,biofire neg, MRSA neg - continue Albuterol q2h PRN, Hypertonic saline BID, Tessalon Perles 100mg TID, Mucinex 1200mg BID, Hycodan PRN, Incruse ellipta upon discharge - was on zosyn, will transition to augmentin tonight for 14 days total AB course, remaining course to be done upon discharge #Deconditioning - Tolerated PT poorly - PT recommend acute rehab, which pt was initially okay with but today insisted she go home instead #Altered mental status - noted to have some disorientation in the mornings - altered mentation differential includes acute delirium in the hospital setting vs chronic dementia vs a mixture of both, f/u with pcp on discharge Total Time Total Time Spent Total Time Spent (In Minutes): >30 Discharge Plan Discharge Items Patient Disposition: Home - Home Health Services Reason For Visit: COUGH, SOB Discharge Diagnosis: bronchiectasis - see below Activity: Resume your previous activity Non-emergency contact: Primary Care Provider and Family Partner Call non-emergency contact if: you have any medication questions Follow-up/Referrals: Carol Prasad MD [Primary Care Provider] - Diet: Carb Consistent or DM2 Addtl Attending Provider Instructions: bronchiectasis flare up -fortunately you are getting better, but to be clear this is a work in progress -as we discussed, it's a little "oversimplified" but i'm looking at this as a problem of both "the renee dish" (the mucous that is hard to clear from the bronchiectasis) or "what's growing in the renee dish" (the bacterial overgrowth that happens on the mucous you can't clear) ---you had gotten better on the doxycycline, and then got worse after we stopped it; now you're getting better on the zosyn --> this all suggests that clearing bacteria has been helpful in helping you feel better. at the same time, the fact that you got worse again right after either means there were bacteria lurking in there that the doxycycline didn't kill, OR that you have enough mucous constantly in your lungs that bacteria can overgrow as a new infection really quickly --->working on the idea that there were possibly (hopefully) just bacteria lurking in there that the doxycycline didn't kill, we had you on an antibiotic called zosyn. this effectively kills everything the doxycycline didn't cover. we'll send you home on augmentin (amoxicillin/clavulanate) - which covers almost all the bacteria the zosyn does and works fairly similarly. we'll treat for a total of 14 days of antibiotics. your next dose at home should be tomorrow morning (04/06/24). since [place] is closed on sundays, we sent this to [facility] -as it relates to the "renee dish" (ie the bronchiectasis) - we've escalated what we're doing with your inhalers to manage things as though you have worse COPD than you really do, with the hopes that this helps keep your lungs more open and helps you clear mucous more easily (ie have a "less rich renee dish") -continue on the nebulizers (both the saline and the albuterol) that pulmonary had you on AND take the other inhalers daily (we're sending you home with the umeclidinium and fluticasone/vilanterol that you've been on here - take both of those inhalers once a day). once those inhalers run out we'll still want to keep you on a similar inhaler regimen - the trick is having to "play the game" on what insurance will cover. -to simplify this - we want you on 3 different inhaled medicines every day (one each of classes called anticholinergics, long acting beta agonists, and inhaled steroids) -- the inhalers we are sending you home with have all three (the fluticasone/vilanterol has 2 of them, the umeclidinium has the third) -we'll send prescriptions for spiriva (an anticholinergic, like the umeclidinium) and symbicort (a combination of the inhaled steroid and beta agonist, like the fluticasone/vilanterol) --the reason is that most of these inhalers all work the same as long as you have one in each class, and then it's just figuring out which ones insurance covers, and i often find that symbicort and spiriva are covered. that said, if you get to the pharmacy and they're really expensive, call the office and we can try again with "different versions of the same thing" -your pulmonary docs will continue to work with you on how to manage the bronchiectasis as best as possible (this can be a tough thing, but they'll stay on top of it as best as can be done) ---->because this is so much of a "work in progress" i want you seeing someone once a week until we've gotten you to where you're doing better AND staying better. it can be pulmonary one week, family doc the next, etc - but until you've gotten better and things have leveled out to stay better, we don't want you going too long between follow up visits weakness -i think getting you mad at me helped, because you really performed reassuringly well when you walked! -we'll have two different, equal goals for you at home: staying safe, and getting stronger -staying safe: if you have a fall you're quite likely to break something. if you break something, you're quite likely to be beat up enough and weak enough that independence may no longer be an option - so be very careful, be aware of your surroundings, and take every precaution you can to not fall. falls happen the most at transitions - so be extra careful when getting out of bed, standing up from the chair, turning corners, etc. use your walker at all times. at the same time, while falls are the biggest way people don't stay safe, sitting and getting weaker is also dangerous - so we'll want to make sure you're moving as much as you can so you don't get progressively weaker, lose strength, lose mobility, develop pressure sores, etc -staying moving/getting stronger: as long as you're being careful enough to stay safe, the next step is to do as much as you can every day. keep walking (safely, with the walker) and we'll ask that PT be set up for home. on the days PT isn't there, work just as hard as when they are! TO DO: a) take the augmentin twice a day starting tomorrow morning (04/06) until it is complete b) take the inhalers regularly (for now the umeclidinium and fluticasone/vilanterol that you had in the hospital - both once a day (rinse your mouth after using); later the spiriva (replacing the umeclidium) once a day and the symbicort (replacing the fluticasone/vilanterol) twice a day c) take the rest of your regular medicines like you always have d) use caution/be safe when getting around to avoid falls // keep moving to avoid weakness e) work with therapy // do therapy even when they're not there so you get stronger f) see a doctor weekly (PCP or pulmonary) until you not only get better, but stay better Pending Studies at Discharge: No Stand-Alone [facility] Medications and DC Order Prescriptions: New tiotropium bromide [Spiriva with HandiHaler] 18 mcg capsule, w/inhalation device 1 cap inhalation DAILY Qty: 30 0RF Rx Instructions: puncture 1 cap using device; one dose = 2 inhalations budesonide-formoterol [Symbicort] 160-4.5 mcg/actuation HFA aerosol inhaler 1 inh inhalation BID Qty: 10.2 0RF amoxicillin-pot clavulanate 875-125 mg tablet 1 tab PO BID Qty: 22 0RF Continued alprazolam [Xanax] 0.5 mg tablet 0.5 mg PO BID Qty: 60 5RF Rx Instructions: PDMP reviewed, ok to fill clonidine HCl 0.1 mg tablet 0.05 mg PO BID Qty: 90 1RF levothyroxine 75 mcg tablet 75 mcg PO DAILY Qty: 90 1RF metformin 500 mg tablet 1,000 mg PO BIDM Qty: 360 1RF Rx Instructions: TAKE WITH MORNING & EVENING MEAL nadolol 40 mg tablet 40 mg PO BID Qty: 180 1RF Tylenol Extra Strength 500 mg powder in packet 500 - 1,000 mg PO Q6H PRN (Reason: Pain) Rx Instructions: 500 to 1000 mg PO every 6 hours PRN; fluoxetine 20 mg capsule 20 mg PO DAILY Qty: 90 3RF Rx Instructions: take with the 40mg capsule to equal 60mg daily fluoxetine 40 mg capsule 40 mg PO DAILY Qty: 90 3RF Rx Instructions: take with the 20mg capsule to equal 60mg daily losartan 25 mg tablet 25 mg PO QAM Qty: 90 3RF benzonatate 100 mg capsule 100 mg PO TID PRN (Reason: cough) Qty: 30 0RF albuterol sulfate 90 mcg/actuation HFA aerosol inhaler 2 inh inhalation QID PRN (Reason: shortness of breath or wheezing) Qty: 8.5 3RF (DME) nebulizers Misc See Rx Instructions .Route Qty: 1 0RF Rx Instructions: As directed sodium chloride [Hyper-Royal] 7 % solution for nebulization 4 ml inhalation BID Qty: 240 0RF multivitamin Tablet 1 tab PO QAM diphenhydramine HCl [Benadryl] 25 mg Capsule 50 mg PO UD PRN (Reason: Headache) magnesium citrate 100 mg tablet 400 mg PO QAM riboflavin (vitamin B2) 400 mg tablet 400 mg PO QAM Discontinued amoxicillin-pot clavulanate [Augmentin] 500-125 mg tablet 1 tab PO BID Qty: 10 0RF Rx Instructions: STARTED 03/29/24 FOR 10 DAYS Discharge Orders: Discharge Order (Routine); Ordered 04/05/24 Ordered By: Gabe Murillo Admission Data Admit Date/Time: 04/02/24 18:46 Attending Provider: Gabe Murillo Admit Provider: Beronica Tiwari Primary Care Provider: Carol Prasad Other Providers: Beronica Tiwari; Manuel Hennessy at [place]; [place] Other Interventions: Discharge Summary Assessment (RN) Last Done: 04/05/24 17:13 Supervising Physician Co-Signing Physician Notes I personally examined the patient and verified all hussein points of history and exam, discussed case, and agree with decision making with Dr Salvador Revisitedpatient wanting to leave against advice. Extensive discussion with patient and . Discussed current plan for bronchiectasis/infection and next steps. expressed understanding. Patient mostly adamant about going home. As related to going homeshe is eating better and ate lunch well without pain or nausea. As it relates to her weaknessonce she was angry with me she was able to get up very steadily and walk slow and steady with her walker walked about 10 feet steadily with a walker and no assistanceslow but steady gait, turned in 34 steps without losing balance, walked back, and sat down again unassisted in her wheelchair. Otherwise exam as above. Bronchiectasis/exacerbation/failed outpatient treatment Possible pneumonia with bacterial overgrowth in the mucus of her bronchiectasis. Respiratory symptoms are improving, Continue Zosyn. I am starting to wonder if her chronic mucus from her bronchiectasis is just essentially a constant "Renee dish" allowing for more bacterial overgrowth. This would fit with feeling better on doxycycline and then worse right afterwards, feeling better on Zosyn nowobviously if she were to worsen right afterwards this would fit quite well. Treating her COPD portion of this more aggressively than the COPD itself warrants, hopefully to be able to enhance pulmonary toilet. Encouraged use of flutter valve. Continue saline nebs. Doubt yeast or Mycobacterium play a role, but if she continues to worsen then might need pulmonary eval. In this regard she would be stable for homeprobably on antibiotics with Augmentin for 14 total days of treatment, and ongoing escalated inhaler therapy, as well as close pulmonary follow-up. While I do think it would be better for her to go to rehab for ongoing PT and OT and close supervision, she is actually doing well enough that going home is not irrational, see discharge instructions for further detail. abdominal pain nausea Resolvedprobably was mostly constipation DVT prophylaxis Lovenox utilized during her stay otherwise as above Resident Activity Tracking Resident Involvement: Resident Care Provided Care Provided: Adult Hospital Medicine
[2024-04-05] MEDS: AMOXICILLIN/CLAVULANATE 875 MG TAB PO ONE (17:25)
--- NOTE | 2024-04-05 18:11 | Billing Data ---
Date of Service April 05, 2024 Coding Level of Care Code 95184 INP/OBS DISCH >30 MIN Comment disregard [id number], thanks!
== END 2024-04-05 17:55 | disposition home health service (06) | DRG 194 ==
LOC: ED 18:25 → 3N 18:25 → SUATTDRO 21:07 → 3N 22:02
DX: E83.42 Hypomagnesemia; E78.5 Hyperlipidemia, unspecified; Z79.890 Hormone replacement therapy; E03.9 Hypothyroidism, unspecified; K59.00 Constipation, unspecified; E87.1 Hypo-osmolality and hyponatremia; F32.A Depression, unspecified; R41.82 Altered mental status, unspecified; J15.9 Unspecified bacterial pneumonia; G43.909 Migraine, unspecified, not intractable, without status migrainosus; I10 Essential (primary) hypertension; F41.9 Anxiety disorder, unspecified; J47.1 Bronchiectasis with (acute) exacerbation; E87.6 Hypokalemia; Z79.84 Long term (current) use of oral hypoglycemic drugs; E11.9 Type 2 diabetes mellitus without complications; R00.1 Bradycardia, unspecified